=== PATIENT | male | born 1960 | race Caucasian/White ===

== ENCOUNTER 2021-12-20 09:14 | Outpatient (CLI) | payer BC, SELFPAY ==
[2021-12-20 19:28] LABS: Alanine Aminotransferase 29 U/L (6-50); Albumin Level 4.6 g/dL (3.5-5.1); Alkaline Phosphatase 105 U/L (38-126); Anion Gap 12 mmol/L (8-16); Aspartate Amino Transferase 26 U/L (17-59); Bilirubin,Total 0.5 mg/dL (0.2-1.3); Blood Urea Nitrogen 14 mg/dL (9-20); Calcium 9.2 mg/dL (8.4-10.2); Carbon Dioxide 23 mmol/L (22-30); Chloride 105 mmol/L (98-107); Cholesterol 205 mg/dL (0-200); Estimated Glomerular Filt Rate > 60; Glucose 114 mg/dL (65-110); HDL Direct 36 mg/dL; Potassium 3.8 mmol/L (3.4-5.0); Sodium 140 mmol/L (137-145); Triglycerides 85 mg/dL (<150)
[2021-12-20 19:44] LABS: LDL Cholesterol Direct 147 mg/dL
== END 2021-12-20 09:15 | disposition home or self-care (01) ==
LOC: ANHGOSHLAB 09:15
PROVIDERS: PCP Family Medicine; Visit Provider Nurse Practitioner Family
DX: E78.5 Hyperlipidemia, unspecified (principal)
CPT/HCPCS: 36415; 80053; 80061

== ENCOUNTER 2022-04-05 18:36 | Emergency (ER) | payer OTHER, BC, SELFPAY ==
[2022-04-05] VITALS (8 sets, daily range): BP systolic 165–185; BP diastolic 96–102; PULSE 76–91; RESP 12–20; TEMP 36.9; O2SAT 100
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
--- NOTE | 2022-04-05 18:52 | ECG_ITS ---
Measurements Intervals [place] Rate: 79 P: -90 [place]: 158 QRS: 73 QRSD: 110 T: 68 QT: 376 QTc: 431 Interpretive Statements SINUS RHYTHM NO PREVIOUS ECG AVAILABLE FOR COMPARISON Electronically Signed On 04-06-2022 19:40:45 REAL ESTATE EXECUTIVE ASSISTANT by Renita Davison M.D.
[2022-04-05] MEDS: MORPHINE SULFATE (*CRX) 4 MG/ML INJ IV PUSH ×2 (19:39→20:10)
[2022-04-05] MEDS: ONDANSETRON INJ 4 MG/2 ML VIAL IV PUSH (19:39)
[2022-04-05] MEDS: SODIUM CHLORIDE 0.9% IV 1,000 ML 150 ML IV CONT (19:39)
[2022-04-05 19:52] LABS: Basophils Absolute Auto 0.1 K/mm3 (0.0-0.1); Basophils Percent Auto 0.7 % (0.2-1.2); Eosinophils Absolute Auto 0.1 K/mm3 (0-0.3); Eosinophils Percent Auto 1.4 % (0-4.4); Hematocrit 44.3 % (42.0-52.0); Hemoglobin 14.8 g/dL (14.0-18.0); Immature Granulocyte Absolute 0.02 K/mm3 (0.00-0.031); Immature Granulocyte Percent A 0.2 % (0-0.5); Lymphocytes Percent Auto 28.9 % (18.3-44.2); Mean Corpuscular HGB Conc 33.4 g/dl (32-36); Mean Corpuscular Hemoglobin 29.6 pg (26-34); Mean Corpuscular Volume 88.6 fl (80-100); Mean Platelet Volume 10.9 fl (7.4-10.4); Monocytes Absolute Auto 0.6 K/mm3 (0.1-0.6); Monocytes Percent Auto 7.6 % (2.6-8.5); Neutrophils Absolute Auto 5.1 K/mm3 (1.3-6.7); Neutrophils Percent Auto 61.2 % (45.5-73.1); Platelet Count Result 248 k/mm3 (150-375); Red Cell Distribution Width 13.5 % (11.5-14.5); White Blood Count 8.3 K/mm3 (4.5-10.0)
[2022-04-05 20:09] LABS: Alanine Aminotransferase 21 U/L (6-50); Albumin Level 4.8 g/dL (3.5-5.1); Alkaline Phosphatase 112 U/L (38-126); Anion Gap 8 mmol/L (8-16); Aspartate Amino Transferase 29 U/L (17-59); Bilirubin,Total 0.9 mg/dL (0.2-1.3); Blood Urea Nitrogen 13 mg/dL (9-20); Calcium 9.4 mg/dL (8.4-10.2); Carbon Dioxide 23 mmol/L (22-30); Chloride 105 mmol/L (98-107); Estimated CRCL calculation 123 ml/min; Estimated Glomerular Filt Rate > 60; Glucose 92 mg/dL (65-110); Potassium 3.9 mmol/L (3.4-5.0); Sodium 136 mmol/L (137-145)
[2022-04-05 20:20] LABS: Troponin I < 0.012 ng/mL (0.000-0.034)
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
== END 2022-04-05 21:27 | disposition home or self-care (01) ==
PROVIDERS: Emergency Provider Family Medicine; PCP Family Medicine
DX: S16.1XXA Strain of muscle, fascia and tendon at neck level, initial encounter (principal); S80.12XA Contusion of left lower leg, initial encounter; J44.9 Chronic obstructive pulmonary disease, unspecified; E78.5 Hyperlipidemia, unspecified; Z86.73 Personal history of transient ischemic attack (TIA), and cerebral infarction without residual deficits; Z98.42 Cataract extraction status, left eye; Z98.41 Cataract extraction status, right eye; F17.210 Nicotine dependence, cigarettes, uncomplicated; J32.0 Chronic maxillary sinusitis; M47.812 Spondylosis without myelopathy or radiculopathy, cervical region; V43.52XA Car driver injured in collision with other type car in traffic accident, initial encounter
CPT/HCPCS: 36415; 70450; 71045; 72125; 73590; 80053; 84484; 85025; 93005; 96361; 96374; 96375; 99284; J2270; J2405; J7030

== ENCOUNTER 2022-06-27 08:57 | Outpatient (CLI) | payer BC, SELFPAY ==
[2022-06-27 12:48] LABS: Basophils Absolute Auto 0.1 K/mm3 (0.0-0.1); Basophils Percent Auto 0.8 % (0.2-1.2); Eosinophils Absolute Auto 0.2 K/mm3 (0-0.3); Eosinophils Percent Auto 2.6 % (0-4.4); Hemoglobin 14.4 g/dL (14.0-18.0); Immature Granulocyte Absolute 0.02 K/mm3 (0.00-0.031); Immature Granulocyte Percent A 0.3 % (0-0.5); Lymphocytes Absolute Auto 2.72 K/mm3 (0.9-3.2); Mean Corpuscular Hemoglobin 29.3 pg (26-34); Mean Corpuscular Volume 91.5 fl (80-100); Mean Platelet Volume 11.1 fl (7.4-10.4); Monocytes Absolute Auto 0.7 K/mm3 (0.1-0.6); Monocytes Percent Auto 10.3 % (2.6-8.5); Platelet Count Result 275 k/mm3 (150-375); Red Blood Count 4.92 M/mm3 (4.6-6.20); Red Cell Distribution Width 13.7 % (11.5-14.5); White Blood Count 6.6 K/mm3 (4.5-10.0)
[2022-06-27 12:53] LABS: Alanine Aminotransferase 18 U/L (6-50); Albumin Level 4.5 g/dL (3.5-5.1); Alkaline Phosphatase 90 U/L (38-126); Anion Gap 5 mmol/L (8-16); Aspartate Amino Transferase 36 U/L (17-59); Bilirubin,Total 0.7 mg/dL (0.2-1.3); Blood Urea Nitrogen 16 mg/dL (9-20); Calcium 9.5 mg/dL (8.4-10.2); Carbon Dioxide 32 mmol/L (22-30); Chloride 101 mmol/L (98-107); Cholesterol 202 mg/dL (0-200); Estimated Glomerular Filt Rate > 60; Glucose 81 mg/dL (65-110); HDL Direct 41 mg/dL; Potassium 4.6 mmol/L (3.4-5.0); Sodium 138 mmol/L (137-145); Triglycerides 90 mg/dL (<150)
[2022-06-27 13:07] LABS: LDL Cholesterol Direct 137 mg/dL
[2022-06-27 13:23] LABS: Prostate Specific Antigen 2.3 ng/mL (< OR = 4.0); Thyroid Stimulating Hormone 0.685 uIU/mL (0.465-4.680)
[2022-07-01 15:42] LABS: Prolactin 10.6 ng/mL (***)
== END 2022-06-27 08:58 | disposition home or self-care (01) ==
LOC: ANHGOSHLAB 08:57
PROVIDERS: PCP Family Medicine; Visit Provider Nurse Practitioner Family
DX: Z00.00 Encounter for general adult medical examination without abnormal findings (principal); E78.5 Hyperlipidemia, unspecified; I10 Essential (primary) hypertension; Z12.5 Encounter for screening for malignant neoplasm of prostate; D35.2 Benign neoplasm of pituitary gland
CPT/HCPCS: 36415; 80053; 80061; 84146; 84153; 84443; 85025; G0103

== ENCOUNTER 2023-01-02 08:46 | Outpatient (CLI) | payer BC, SELFPAY ==
[2023-01-02 11:59] LABS: Basophils Percent Auto 0.7 % (0.2-1.2); Eosinophils Absolute Auto 0.1 K/mm3 (0-0.3); Eosinophils Percent Auto 3.1 % (0-4.4); Hematocrit 42.6 % (42.0-52.0); Hemoglobin 13.5 g/dL (14.0-18.0); Lymphocytes Absolute Auto 2.12 K/mm3 (0.9-3.2); Lymphocytes Percent Auto 51.3 % (18.3-44.2); Mean Corpuscular HGB Conc 31.7 g/dl (32-36); Mean Corpuscular Volume 91.4 fl (80-100); Mean Platelet Volume 10.8 fl (7.4-10.4); Monocytes Absolute Auto 0.3 K/mm3 (0.1-0.6); Monocytes Percent Auto 7.5 % (2.6-8.5); Neutrophils Absolute Auto 1.5 K/mm3 (1.3-6.7); Neutrophils Percent Auto 37.4 % (45.5-73.1); Platelet Count Result 218 k/mm3 (150-375); Red Blood Count 4.66 M/mm3 (4.6-6.20); Red Cell Distribution Width 14.1 % (11.5-14.5); White Blood Count 4.1 K/mm3 (4.5-10.0)
[2023-01-02 12:15] LABS: Hemoglobin A1C 5.2 % (<5.7)
[2023-01-02 12:31] LABS: Alanine Aminotransferase 15 U/L (6-50); Albumin Level 4.3 g/dL (3.5-5.1); Alkaline Phosphatase 84 U/L (38-126); Anion Gap 8 mmol/L (8-16); Aspartate Amino Transferase 35 U/L (17-59); Bilirubin,Total 0.6 mg/dL (0.2-1.3); Blood Urea Nitrogen 18 mg/dL (9-20); Calcium 9.5 mg/dL (8.4-10.2); Carbon Dioxide 28 mmol/L (22-30); Chloride 105 mmol/L (98-107); Cholesterol 196 mg/dL (0-200); Estimated Glomerular Filt Rate > 60; Glucose 91 mg/dL (65-110); HDL Direct 44 mg/dL; Sodium 141 mmol/L (137-145); Triglycerides 62 mg/dL (<150)
[2023-01-02 12:52] LABS: LDL Cholesterol Direct 122 mg/dL
[2023-01-02 13:31] LABS: Prostate Specific Antigen 2.6 ng/mL (< OR = 4.0); Thyroid Stimulating Hormone 0.557 uIU/mL (0.465-4.680)
[2023-01-06 08:52] LABS: Prolactin 10.5 ng/mL (***)
== END 2023-01-02 08:47 | disposition home or self-care (01) ==
LOC: ANHGOSHLAB 08:47
PROVIDERS: PCP Family Medicine; Visit Provider Nurse Practitioner Family
DX: Z13.220 Encounter for screening for lipoid disorders (principal); R73.03 Prediabetes; Z00.00 Encounter for general adult medical examination without abnormal findings; Z13.29 Encounter for screening for other suspected endocrine disorder; I10 Essential (primary) hypertension; Z12.5 Encounter for screening for malignant neoplasm of prostate; D35.2 Benign neoplasm of pituitary gland
CPT/HCPCS: 36415; 80053; 80061; 83036; 84146; 84153; 84443; 85025; G0103

== ENCOUNTER 2023-07-02 11:08 | Emergency (ER) | payer BC, SELFPAY ==
[2023-07-02 11:13] VITALS: BP 147/66; PULSE 91; RESP 16; TEMP 36.6; O2SAT 100
--- NOTE | 2023-07-02 12:23 | ED.GENADULT ---
HPI - General Adult General Chief complaint: Unspecified Stated complaint: throat pain and swelling Time Seen by Provider: 07/02/23 11:58 History of Present Illness HPI narrative: 8-year-old male presents to the emergency room for evaluation of sore throat. Patient states 10 days ago he had a virtual visit with his primary care doctor for evaluation of URI symptoms that he was experiencing for 3 days. Patient stated he had a sore throat, postnasal drip, sinus congestion and a productive cough. Patient was prescribed a Medrol Dosepak and an antibiotic at that time for his viral illness. Patient states no improvement after taking a 7 day course of Augmentin. Patient states he went to urgent care 3 days ago, where he was tested for strep throat. The POC testing was negative. Patient was once again prescribed antibiotic for his viral illness. Related Data Home Medications Medication Instructions Recorded Confirmed cabergoline 0.5 mg tablet 0.5 mg PO 06/24/23 06/24/23 Allergies Allergy/AdvReac Type Severity Reaction Status Date / Time bromocriptine Allergy Severe Other Verified 07/02/23 11:12 Review of Systems Review of Systems: Review of systems unremarkable except for noted in HPI [facility] Past Medical History Medical History BMI 34.0-34.9,adult COPD (chronic obstructive pulmonary disease) Encounter for long-term (current) use of other medications History of TIA (transient ischemic attack) 1993 Hyperlipidemia Insomnia Knee pain, chronic Pituitary adenoma 1994 Tobacco use URI (upper respiratory infection) Surgical History Surgical History History of cholecystectomy (~2010) History of tonsillectomy (~1967) Hx of bilateral cataract extraction (~04/2021) Family History Family History Other No pertinent family history Social History Social History Social History: Patient is , he lives with his in [place]. They have 2 children. 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 Smoking packs per day: 1 Smoking cigarettes per day: 20.0 Years smoked: 40 Smoking pack-years: 40.00 Smoking status: Former smoker Tobacco type: cigarettes Second hand tobacco smoke exposure: Yes Alcohol intake: never Substance use: never Substance use type: does not use Lack of Transportation: No Lack of Food: Never True Current Housing: I Have Housing Concerned About Future Housing: No Difficulty Paying Gas/Electric Bills: No Difficulty Paying for Meds: No Currently Unemployed: No Education: High School Diploma/GED Difficulty w/ Childcare or Family Care: No Exam Narrative: GENERAL: Well-appearing, well-nourished, no physical limitations, and in no acute distress. HEAD: Normocephalic, atraumatic. EYES: Conjunctivae normal, PERRLA and EOMI. ENT: White curd like plaques to the posterior pharynx with the surrounding erythema consistent with thrush NECK: Supple. No cervical lymphadenopathy CHEST: Clear to auscultation. No respiratory distress. No wheezes rales or rhonchi. HEART: Regular rate and rhythm. No murmur heard. Normal peripheral pulses. EXTREMITIES: Normal range of motion. No edema. No clubbing or cyanosis SKIN: Warm, dry, no rash. No noted wounds NEURO: No focal deficits. Alert and oriented x3. MAEW. CN's II-XI intact bilaterally, normal gait PSYCH: Cooperative. Normal mood and affect. Course Vital Signs Vital signs: Vital Signs Temperature 36.6 C 07/02/23 11:13 Pulse Rate 91 07/02/23 11:13 Respiratory Rate 16 07/02/23 11:13 Blood Pressure 147/66 H 07/02/23 11:13 Pulse Oximetry 100 07/02/23 11:13 Temperature 36.6 C 07/02/23 11:13 Pulse Rate 91 07/02/23 11:13 Respiratory Rate 16 07/02/23 11
[2023-07-02] MEDS: KETOROLAC (*BKC) 60 MG/2 ML VIAL IM (12:31)
[2023-07-02 13:10] VITALS: BP 149/76; PULSE 88; RESP 20; O2SAT 98
== END 2023-07-02 13:10 | disposition home or self-care (01) ==
PROVIDERS: Emergency Provider Nurse Practitioner Family; PCP Family Medicine
DX: B37.0 Candidal stomatitis (principal); J44.9 Chronic obstructive pulmonary disease, unspecified; E78.5 Hyperlipidemia, unspecified; Z86.73 Personal history of transient ischemic attack (TIA), and cerebral infarction without residual deficits; Z87.891 Personal history of nicotine dependence; Z98.42 Cataract extraction status, left eye; Z98.41 Cataract extraction status, right eye; Z90.49 Acquired absence of other specified parts of digestive tract
CPT/HCPCS: 96372; 99283; J1885

== ENCOUNTER 2023-07-07 10:39 | Inpatient (IN) | payer BC, SELFPAY ==
[2023-07-07] VITALS (12 sets, daily range): BP systolic 118–135; BP diastolic 60–72; PULSE 73–116; RESP 15–19; TEMP 36.7–36.9; O2SAT 97–100; BMI 21.9
--- NOTE | ~2023-07-07 | XR_ITS ---
EXAMINATION: XR chest 2V DATE: 07/07/2023 12:32 INDICATION: Shortness of breath TECHNIQUE: frontal and lateral views of the chest were obtained. COMPARISON: Chest radiograph dated 04/05/2022 FINDINGS: Small calcified nodule at the left lung base. No other airspace opacities, pulmonary edema, pleural e ffusion or pneumothorax. The cardiomediastinal silhouette is normal. Mild to moderate thoracic spondy losis. IMPRESSION: 1. No acute cardiopulmonary disease. Reviewed, dictated and finalized at location B.
--- NOTE | ~2023-07-07 | CT_ITS ---
EXAMINATION: CTA chest PE abdomen pel DATE: 07/07/2023 13:43 INDICATION: Shortness of breath and nausea TECHNIQUE: Computed tomography (CT) pulmonary angiogram of the chest was performed with 100 mL Omnipa que-350 intravenous contrast. Additional 3D reconstructions utilizing coronal maximum intensity proje ction (MIP) were performed. CT of the abdomen and pelvis was performed with intravenous contrast util izing the same contrast bolus following a short delay. Automated exposure control and iterative recon struction technique were employed. The dose-length product was 814.18 mGy-cm. COMPARISON: None FINDINGS: Chest: No pulmonary embolism. Sensitivity is decreased in many of the smaller subsegmental pulmonary arterie s due to respiratory motion. Mild emphysema. There are multiple scattered small bilateral calcified p ulmonary nodules consistent with old granulomatous disease. Small region of consolidation at the medi al right apex with appearance favoring atelectasis over pneumonia. No pulmonary edema or pleural effu jan. Heart size is normal. Small amount of atherosclerotic coronary artery calcification. No pericar dial effusion. Thoracic aorta is normal in caliber with no dissection. No pathologically enlarged tho racic lymphadenopathy. Moderate thoracic spondylosis. Abdomen/pelvis: Cholecystectomy clips at the gallbladder fossa. Liver, spleen, pancreas, bilateral adrenal glands are normal. Subcentimeter low-attenuation lesions in the right kidney the caudal-most of fluid attenuati on consistent with a simple cyst. The more cephalad to a slightly higher attenuation most likely comp [place] proteinaceous/hemorrhagic cysts although solid neoplasm cannot be absolutely excluded. There are bilateral nonobstructing renal stones, 4 in the right kidney, the largest measuring 3-4 mm and single 3 mm stone in the left kidney. There is edematous wall thickening throughout the ascending colon wit h mild stranding along the pericecal fat. There is however no evident stranding surrounding the daysi l-appearing appendix. Remainder of the bowels are unremarkable with no obstruction. Bladder is normal . No free intraperitoneal gas or fluid. No pathologically enlarged abdominal or pelvic lymphadenopath y. 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 Additional mild degenerative skeletal changes in the lumbar spine and bilateral hi ps. IMPRESSION: 1. No pulmonary embolism. 2. Wall thickening and pericolonic stranding at the cecum and ascending colon consistent with focal c olitis which could be infectious, inflammatory or less likely ischemic in etiology. 3. Bilateral nonobstructing nephrolithiasis. 4. A few subcentimeter low-attenuation lesions in the right kidney, 2 with low-attenuation consistent with simple cysts and 2 additional lesions measuring up to 9 mm at the upper pole of slightly higher attenuation most likely complex proteinaceous/hemorrhagic cysts although differential would include solid renal cell carcinoma. Would recommend follow-up pre and postcontrast MRI or CT, favor the forme r. 5. Mild emphysema. Reviewed, dictated and finalized at location B. IMPRESSION: 1. No pulmonary embolism. 2. Wall thickening and pericolonic stranding at the cecum and ascending colon c onsistent with focal colitis which could be infectious, inflammatory or less li [place] ischemic in etiology. 3. Bilateral nonobstructing nephrolithiasis. 4. A few subcentimeter low-attenuation lesions in the right kidney, 2 with low- attenuation consistent with simple cysts and 2 additional lesions measuring up to 9 mm at the upper pole of slightly higher attenuation most likely complex pr oteinaceous/hemorrhagic cysts although differential would include solid renal c el
--- NOTE | 2023-07-07 11:52 | ECG_ITS ---
SEE SCANNED COPY FOR CONFIRMED REPORT MTDD
[2023-07-07 12:32] LABS: Hematocrit 33.5 % (42.0-52.0); Hemoglobin 11.4 g/dL (14.0-18.0); Mean Corpuscular Hemoglobin 31.4 pg (26-34); Mean Corpuscular Volume 92.3 fl (80-100); Mean Platelet Volume 10.7 fl (7.4-10.4); Platelet Count Result 132 k/mm3 (150-375); Red Blood Count 3.63 M/mm3 (4.6-6.20); Red Cell Distribution Width 15.8 % (11.5-14.5)
[2023-07-07 12:40] LABS: Appearance Urine Cloudy (Clear); Bacteria Urine None Seen /hpf; Bilirubin Urine 2+ (Negative); Blood Urine Negative (Negative); Color Urine Dark Yellow (Yellow); Glucose Urine UA Negative (Negative); Ketones Urine 2+ mg/dL (Negative); Leukocyte Esterase Ur Negative LEU/UL (Negative); Need Manual Microscopic Reviewed; Nitrate Urine Negative (Negative); Protein Urine 1+ mg/dL (Negative); Specific Grav Ur 1.022 (1.001-1.035); Squamous Epithelial Cell Urine Many /hpf (Few); pH Urine 5.5 (5.0-9.0)
[2023-07-07 12:43] LABS: Add Urine Microscopic? YES; INR 1.2; Partial Thromboplastin Time 34.6 Seconds (22.3-36.8); Prothrombin Time 15.9 Seconds (11.1-14.7)
[2023-07-07 12:48] LABS: Alanine Aminotransferase 17 U/L (6-50); Albumin Level 4.3 g/dL (3.5-5.1); Alkaline Phosphatase 178 U/L (38-126); Anion Gap 14 mmol/L (4-12); Aspartate Amino Transferase 24 U/L (17-59); Bilirubin,Total 1.1 mg/dL (0.2-1.3); Blood Urea Nitrogen 17 mg/dL (9-20); Calcium 9.4 mg/dL (8.4-10.2); Carbon Dioxide 20 mmol/L (22-30); Chloride 102 mmol/L (98-107); Estimated CRCL calculation 77 ml/min; Estimated Glomerular Filt Rate > 60; Glucose 99 mg/dL (65-110); Magnesium 2.1 mg/dL (1.6-2.3); Potassium 2.8 mmol/L (3.4-5.0); Sodium 136 mmol/L (137-145)
[2023-07-07 12:55] LABS: NT Pro B Type Natriuretic Pept 334 pg/mL (19.9-100); Troponin I 0.012 ng/mL (0.000-0.034)
[2023-07-07 12:57] LABS: Blastocytes 14 %; Lymphocytes Absolute Manual 2.08 K/mm3 (1.1-4.5); Monocytes Percent Manual 60 % (3-9); Neutrophils Percent Manual 1 % (46-73); Nucleated Red Blood Cells 1 %; Platelet Estimate Decreased (Adequate); Promyelocytes Percent 2 %; Schistocytes None Seen; Total Cells Counted 100
[2023-07-07] MEDS: LACTATED RINGERS 1,000 ML 999 ML IV CONT ×2 (13:53)
--- NOTE | 2023-07-07 13:57 | ED.GENADULT ---
HPI - General Adult General Chief complaint: Shortness of Breath/Dyspnea Stated complaint: abd pain, feels SOB, no energy Time Seen by Provider: 07/07/23 11:39 Source: patient, RN notes reviewed and old records reviewed Mode of arrival: ambulatory Limitations: no limitations History of Present Illness HPI narrative: This is a 62 year old male that presents for evaluation of shortness of breath and fatigue. Patient states starting over 2 weeks ago he developed a sore throat. He was placed on antibiotics but he felt like he was getting worse so he went to urgent care. He reports testing negative for strep but he was continued on antibiotics. He states 5 days ago he came to ER because he did not feel any better . He was diagnosed with thrush at that time and placed on nystatin. Related Data Home Medications Medication Instructions Recorded Confirmed cabergoline 0.5 mg tablet 0.5 mg PO 2XW 06/24/23 07/07/23 fluticasone fur. 100 mcg-umeclid 1 inh inhalation QHS 07/07/23 07/07/23 62.5 mcg-vilant 25 mcg inhalat.powder (Trelegy Ellipta) Allergies Allergy/AdvReac Type Severity Reaction Status Date / Time bromocriptine Allergy Severe Other Verified 07/07/23 18:23 Review of Systems Constitutional: Constitutional: Reports fatigue and Reports weakness ENT: Reports dizziness and Reports sore throat Cardiovascular: Cardiovascular: Denies syncope, Denies rapid heart rate, Denies irregular heart rhythm, Denies leg edema and Reports dyspnea Respiratory: Respiratory: Denies chest congestion, Denies hemoptysis, Denies excessive phlegm production and Reports dyspnea Gastrointestinal: Gastrointestinal: Reports abdominal pain, Denies hematochezia, Denies diarrhea, Reports nausea and Denies vomiting Genitourinary: Genitourinary: Denies hematuria, Denies dysuria, Denies penile discharge and Denies testicular pain Musculoskeletal: Musculoskeletal: Denies joint swelling, Denies loss of height and Denies muscle weakness Neurologic: Denies syncope, Reports headache(s), Denies focal weakness and Denies weakness PMFSH Past Medical History Medical History (Updated 07/07/23 @ 17:28 by Tosin Adorno PA-C) Chronic obstructive pulmonary disease Former smoker Hyperlipidemia Insomnia Pituitary adenoma (1994) Transient ischemic attack (1993) Surgical History Surgical History (Updated 07/07/23 @ 17:09 by Tosin Adorno PA-C) History of bilateral cataract extraction (04/2021) History of cholecystectomy (2010) History of tonsillectomy (1967) Family History Family History Other No pertinent family history Social History Social History (Updated 07/07/23 @ 17:26 by Tosin Adorno PA-C) Social History: Surrogate medical decision maker: Code status: Full code. Smoking packs per day: 0.5 Smoking cigarettes per day: 10.0 Years smoked: 45 Smoking pack-years: 22.50 Smoking status: Light tobacco smoker Tobacco type: cigarettes Second hand tobacco smoke exposure: Yes Alcohol intake: never Drinks per week: 0 Substance use: never Substance use type: does not use Do You Feel Safe in your Home?: Yes Lack of Transportation: No Lack of Food: Never True Current Housing: I Have Housing Concerned About Future Housing: No Difficulty Paying Gas/Electric Bills: No Difficulty Paying for Meds: No Currently Unemployed: No Education: Associate Degree Difficulty w/ Childcare or Family Care: No Additional living arrangements comments: with 2 children. Lives with spouse in [place]. 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 Spiritual care concerns: No Exam Const: General: no acute distress and alert Nutritional Appearance: well nourished Orientation/consciousness: patient oriented x3 Limitations: no limitations HENMT: Head: normal to inspection Ears: external ears normal Face/Nose/Sinu
[2023-07-07] MEDS: POTASSIUM CHLORIDE 20 MEQ ER TABLET 40 MEQ PO (15:38)
--- NOTE | 2023-07-07 15:51 | PM.IMHP ---
H&P: HPI History of Present Illness Date/Time: 07/07/23 18:00 Chief Complaint: Fatigue, shortness of breath, abdominal pain. Narrative: This is a very pleasant 62-year-old male with history of transient ischemic attack, pituitary adenoma, chronic obstructive pulmonary disease, and hyperlipidemia who presented to the emergency department for evaluation of abdominal pain, fatigue, and shortness of breath. The patient provides following history. He had a telemedicine appointment with his doctor on 06/24/2023 for evaluation of sore throat, chest congestion, cough productive of light green sputum, and fever up to 101.7? which had been ongoing for nearly a week. He was prescribed a Medrol Dosepak and Augmentin with plans for follow-up in 1 week. He finished his medications with no improvement and he was seen in the emergency department on 07/02/2023 with ongoing symptoms including worsening sore throat. There was evidence of thrush on exam and the was given a dose of fluconazole as well as nystatin oral suspension. The thrush has greatly improved with treatment but he continues to feel poorly. He has no energy and reports fatigue, ongoing fevers, nonbloody diarrhea, shortness of breath with activity, and diffuse cramping abdominal pain without radiation. Appetite is poor. With further questioning he has apparently loss 130 lb in the last 1.5 years though he has not necessarily been trying. He denies sick contacts, sinus congestion, cough, chest pain, pleuritic pain, swollen lymph nodes, dysuria, wounds and rashes, and recent travel. In the ED: He was afebrile on arrival with stable vital signs. CBC was significant for WBC count of 26.0, hemoglobin 11.4, hematocrit 33.5, platelet 132. Manual differential was significant for 1% neutrophils, 8% lymphocytes, 60% monocytes, 2% promyelocytes, and 14% blast cells. CMP showed a sodium of 136, potassium 2.8, BUN 17, creatinine 1.10, lactic acid 1.0, uric acid 4.6, magnesium 2.1, LDH 242. Chest x-ray showed no acute cardiopulmonary disease. CTA of the chest, abdomen, and pelvis showed wall thickening and pericolonic stranding at the cecum and ascending colon, bilateral nonobstructing nephrolithiasis, a few subcentimeter kidney lesions, and mild emphysema. After seeing the differential on his CBC, the ED physician spoke with Dr. Naqvi who thought it would be most appropriate to transfer the patient to a [facility] however was willing to see the patient in consultation if no beds were available. [facility] has accepted the patient but they do not anticipate having a bed in the next 24 hours and he will be admitted here pending bed availability. They recommended starting empiric antibiotics for possible colitis given his neutropenia and starting hydroxyurea with close monitoring labs for tumor lysis syndrome. Review of Systems Review of Systems: 12 systems were reviewed and are negative except for as per HPI. [facility] Past Medical History Medical History Chronic obstructive pulmonary disease Former smoker Hyperlipidemia Insomnia Pituitary adenoma (1994) Transient ischemic attack (1993) Surgical History Surgical History History of bilateral cataract extraction (04/2021) History of cholecystectomy (2010) History of tonsillectomy (1967) Family History Family History Other No pertinent family history Social History Social History Social History: Code status: Full code. Smoking packs per day: 1 Smoking cigarettes per day: 20.0 Years smoked: 40 Smoking pack-years: 40.00 Smoking status: Former smoker Tobacco type: cigarettes Second hand tobacco smoke exposure: Yes Alcohol intake: never Drinks per week: 0 Substance use: never Substance use type: does n
[2023-07-07] MEDS: SODIUM CHLORIDE 0.9% IV 1,000 ML 125 ML IV CONT (15:52)
[2023-07-07] MEDS: POTASSIUM CHLORIDE INJ 40 MEQ in SODIUM CHLORIDE 0.9% IV 500 ML 130 MEQ IVPB (15:54)
[2023-07-07] MEDS: metroNIDAZOLE 500 MG/ISO 100ML 500 MG/100 ML BAG 100 MG IVPB ×2 (16:38→22:10)
--- NOTE | 2023-07-07 16:45 | PC.NURSE ---
This RN spoke with Felicity at [facility] who stated the patient has been accepted and that she will call when a bed becomes available for the pt
[2023-07-07 17:13] LABS: Lactate Dehydrogenase 242 U/L (120-246); Uric Acid 4.6 mg/dL (3.5-8.5)
--- NOTE | 2023-07-07 17:45 | ADMGEN ---
This patient, Pierre Toussaint, was admitted to Medical Room 252-01. Patient/family oriented to hospital policies and general routines including ID bracelet, bed and alarms, visiting hours, pain management, procedures, bathroom and other care routines, personal items, smoking policy, room service/diet, and visiting hours. Information on how to activate the Rapid Response Team has been discussed. Patient/Family are encouraged to report perceived risks to care and to ask questions if they do not understand what they are told or what they should do.
[2023-07-07 19:31] LABS: Fibrinogen 663 mg/dl (215-510)
[2023-07-07] MEDS: MORPHINE SULFATE (*CRX) 2 MG/ML INJ IV PUSH (20:06)
[2023-07-07] MEDS: HYDROcodone/acetaminophen (*CRX) 5-325 MG TABLET 1 TAB PO (23:02)
[2023-07-08] VITALS (10 sets, daily range): BP systolic 100–118; BP diastolic 52–58; PULSE 65–95; RESP 16–20; TEMP 36.5–38.5; O2SAT 95–99
[2023-07-08] MEDS: SODIUM CHLORIDE 0.9% IV 1,000 ML 125 ML IV CONT ×2 (03:49→12:00)
[2023-07-08] MEDS: ACETAMINOPHEN 325 MG TABLET 650 MG PO (05:16)
[2023-07-08] MEDS: metroNIDAZOLE 500 MG/ISO 100ML 500 MG/100 ML BAG 100 MG IVPB ×2 (05:16→13:18)
[2023-07-08 05:49] LABS: Hemoglobin 9.5 g/dL (14.0-18.0); Mean Corpuscular HGB Conc 33.9 g/dl (32-36); Mean Corpuscular Hemoglobin 31.8 pg (26-34); Mean Corpuscular Volume 93.6 fl (80-100); Platelet Count Result 101 k/mm3 (150-375); Red Blood Count 2.99 M/mm3 (4.6-6.20); Red Cell Distribution Width 16.1 % (11.5-14.5); White Blood Count 29.9 K/mm3 (4.5-10.0)
[2023-07-08 06:03] LABS: Alanine Aminotransferase 14 U/L (6-50); Albumin Level 3.2 g/dL (3.5-5.1); Alkaline Phosphatase 126 U/L (38-126); Anion Gap 7 mmol/L (4-12); Aspartate Amino Transferase 20 U/L (17-59); Blood Urea Nitrogen 13 mg/dL (9-20); Calcium 8.3 mg/dL (8.4-10.2); Carbon Dioxide 19 mmol/L (22-30); Chloride 106 mmol/L (98-107); Estimated CRCL calculation 93 ml/min; Estimated Glomerular Filt Rate > 60; Glucose 88 mg/dL (65-110); Magnesium 1.8 mg/dL (1.6-2.3); Potassium 3.3 mmol/L (3.4-5.0); Sodium 132 mmol/L (137-145); Uric Acid 4.6 mg/dL (3.5-8.5)
[2023-07-08 07:30] LABS: Blastocytes 21 %; Eosinophils Absolute Manual 0.29 K/mm3 (0.02-0.50); Eosinophils Percent Manual 1 % (0-4); Lymphocytes Absolute Manual 13.75 K/mm3 (1.1-4.5); Monocytes Absolute Manual 6.87 K/mm3 (0.1-0.90); Monocytes Percent Manual 23 % (3-9); Neutrophils Percent Manual 1 % (46-73); Nucleated Red Blood Cells 1 %; Platelet Estimate Decreased (Adequate); Promyelocytes Percent 8 %; Total Cells Counted 100
[2023-07-08 07:31] LABS: Anisocytosis 1+; Burr Cells 1+; Schistocytes None Seen
[2023-07-08] MEDS: NYSTATIN 100,000 UNITS/ML SUSP 5 ML ORAL.SUSP PO ×3 (08:46→17:16)
[2023-07-08] MEDS: FLUTICASONE PROPIONATE 0.05% NA SPR 16 GM BTL (*BKC) 1 SPRAY NASAL (08:46)
[2023-07-08] MEDS: HYDROcodone/acetaminophen (*CRX) 5-325 MG TABLET 1 TAB PO ×2 (08:46→17:18)
--- NOTE | 2023-07-08 08:51 | PM.IMPN ---
Progress Note: A&P Assessment and Plan (1) Leukemia: Code(s): C95.90 - Leukemia, unspecified not having achieved remission Status: Acute Assessment and Plan: -substantial, unintentional weight loss of 130 lb in the last 1.5 years and the last several months CBC today is concerning for leukemia with severe neutropenia and an increase in premature cells including blasts cells. Oncology team at [place] has accepted him in transfer however there is no bed available at this time and he will be admitted to the floor for now pending bed availability. They recommend continuing empiric antibiotics and starting hydroxyurea 1000 mg b.i.d. with close monitoring for tumor lysis. (2) Colitis: Code(s): K52.9 - Noninfective gastroenteritis and colitis, unspecified Status: Acute (3) Hypokalemia: Code(s): E87.6 - Hypokalemia Status: Acute (4) Pituitary adenoma: Onset Date: 1994 Code(s): D35.2 - Benign neoplasm of pituitary gland Status: Acute (5) Chronic obstructive pulmonary disease: Code(s): J44.9 - Chronic obstructive pulmonary disease, unspecified Status: Acute Plan The patient presented to the emergency department for evaluation of fever, abdominal pain, and shortness of breath as detailed in HPI. Labs, imaging, EKG, and all reports were personally reviewed. He reports a substantial, unintentional weight loss of 130 lb in the last 1.5 years and the last several months that he seems to pickling grader any infection he is exposed to with prolonged time to healing. CBC today is concerning for leukemia with severe neutropenia and an increase in premature cells including blasts cells. Oncology team at [place] has accepted him in transfer however there is no bed available at this time and he will be admitted to the floor for now pending bed availability. They recommend continuing empiric antibiotics and starting hydroxyurea 1000 mg b.i.d. with close monitoring for tumor lysis. At this time his potassium is actually quite low and will be replaced and monitored. Calcium and magnesium are within normal limits. Stool studies as well as stool for C diff have been ordered. No evidence to suggest acute COPD exacerbation. awaiting for bed from [place] Time Spent With Patient Time with patient: less than 15 minutes Subjective Date/time seen: 07/08/23 08:51 Interval history: 62-year-old male with history of transient ischemic attack, pituitary adenoma, chronic obstructive pulmonary disease, and hyperlipidemia who presented to the emergency department for evaluation of abdominal pain, fatigue, and shortness of breath. He had a telemedicine appointment with his doctor on 06/24/2023 for evaluation of sore throat, chest congestion, cough productive of light green sputum, and fever up to 101.7? which had been ongoing for nearly a week. He was prescribed a Medrol Dosepak and Augmentin with plans for follow-up in 1 week. He finished his medications with no improvement and he was seen in the emergency department on 07/02/2023 with ongoing symptoms including worsening sore throat. There was evidence of thrush on exam and the was given a dose of fluconazole as well as nystatin oral suspension. The thrush has greatly improved with treatment but he continues to feel poorly. He has no energy and reports fatigue, ongoing fevers, nonbloody diarrhea, shortness of breath with activity, and diffuse, cramping abdominal pain without radiation. Appetite is poor. With further questioning he has apparently loss 130 lb in the last 1.5 years though he has not necessarily been trying. He denies sick contacts, sinus congestion, cough, chest pain, pleuritic pain, swollen lymph nodes, dysuria, wounds and rashes, and recent travel. In the ED: He was afebrile on arrival with stable vital signs. CBC was significant for WBC count of 26.0, hemoglobin 11.4, hematocrit 33.5, platelet 132. Manual differential was significant for 1% neutrophils, 8% lympho
[2023-07-08] MEDS: HYDROXYUREA (*CHEMO) 500 MG CAPSULE 1000 MG PO ×2 (11:50→17:15)
[2023-07-08] MEDS: MORPHINE SULFATE (*CRX) 2 MG/ML INJ IV PUSH (11:51)
[2023-07-08] MEDS: IBUPROFEN 600 MG TABLET PO (11:51)
--- NOTE | 2023-07-08 12:36 | PDONCCN ---
HPI - Date of Consult Date/Time: 07/08/23 12:36 Requesting Physician: Aleksandr Mendez MD Primary Care Provider: Malachi Kapoor MD - Consult Narrative Reason for consult: Acute promyelocytic leukemia Narrative: Pierre Toussaint is a 62 year old male who has been in good health except history of pituitary adenoma, COPD, hyperlipidemia and TIA came into the ER with abdominal pain fatigue generalized weakness along with shortness of breath going on for 3 weeks duration. He has been coughing with some light yellow greenish sputum and complain of fever and chills for 2-3 weeks duration. He has lost more than 10 lb weight with poor appetite. He was treated initially with Augmentin and Medrol Dosepak. He denies any bleeding including melena hematochezia. Denies any mucosal bleeding. His labs showed elevated WBC count of 26,000 with hemoglobin of 11.5 and platelet of [id number]. There was 14% blast on the peripheral smear. He denies any previous history of leukemia and lymphoma. 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 Review of Systems - Review of Systems All systems reviewed & are unremarkable except as noted in HPI and bel - Neurologic Reports headache(s), Denies syncope, Denies focal weakness, Denies weakness PMFSH Medical History: Medical History (Last Reviewed 07/07/23 @ 21:05 by Tosin Adorno PA-C) Chronic obstructive pulmonary disease Former smoker Hyperlipidemia Insomnia Pituitary adenoma Onset Date: 1994 Transient ischemic attack Onset Date: 1993 Surgical History: Surgical History (Last Reviewed 07/07/23 @ 21:05 by Tosin Adorno PA-C) History of bilateral cataract extraction Onset Date: 04/2021 History of cholecystectomy Onset Date: 2010 History of tonsillectomy Onset Date: 1967 Family History: Family History (Last Reviewed 07/07/23 @ 21:05 by Tosin Adorno PA-C) Other No pertinent family history - Social History Social History: Social History (Last Updated 07/07/23 @ 21:06 by Tosin Adorno PA-C) Alcohol Use: Alcohol intake: never Drinks per week: 0 Substance Use: Substance use: never Substance use type: does not use Others: Spiritual care concerns: No Smoking Status: Smoking status: Former smoker Tobacco type: cigarettes Second hand tobacco smoke exposure: Yes Smoking Pack-years: Smoking packs per day: 1 Smoking cigarettes per day: 20.0 Years smoked: 40 Smoking pack-years: 40.00 Social Determinants of Health: Do You Feel Safe in your Home?: Yes Has the Lack of Transportation Kept You From Medical Appointments or From Getting Medications?: No Within the Past 12 Months, Were You Worried Whether Your Food Would Run Out Before You Got Money to Buy More?: Never True What is Your Housing Situation Today?: I Have Housing Are You Worried That in the Next 2 Months, You May Not Have Your Own Housing to Live In?: No Do You Have Trouble Paying Your Heating Or Electricity Bill?: No Do You Have Trouble Paying For Medicines?: No Are You Currently Unemployed and Looking for Work?: No Highest Level of Education Completed: High School Diploma/GED Do You Have Trouble With Childcare or the Care of a Family Member?: No Exam - Vital Signs Vital Signs - 24 hr 07/07/23 13:54 07/07/23 15:15 07/07/23 16:38 Temperature Pulse Rate 73 86 87 Respiratory Rate 19 18 15 Blood Pressure 135/67 135/70 129/72 Pulse Oximetry 100 100 100 Oxygen Delivery 07/07/23 17:26 07/07/23 17:46 07/07/23 18:00 Temperature 36.9 C 36.7 C Pulse Rate 97 116 H Respiratory Rate 19 16 Blood Pressure 122/62 128/70 Pulse Oximetry 99 98 Oxygen Delivery Room Air 07/07/23 18:57 07/07/23 20:54 07/07/23 20:56 Temperature 36.9 C 36.9 C Pulse Rate 92 96 96 Respiratory Rate 18 18 Blood Pr
[2023-07-08] MEDS: FLUTICASONE/UMECLIDIN/VILANTER 100-62.5-25 MCG ELLIPTA 1 PUFF INHALATION (20:47)
[2023-07-08] MEDS: ALBUTEROL SULFATE (*SP) AEROSOL 1 PUFF 2 PUFF INHALATION (20:48)
--- NOTE | 2023-07-16 15:55 | PM.TDS ---
Transfer Discharge Sum: Prov Provider Date of admission: 07/08/23 09:13 Primary care physician: Malachi Kapoor MD Admitting clinician: Aleksandr Mendez MD Consults: 07/07/23 Consult to Physician Routine Comment: Called office LVM @ 08:43am (-) Consulting Provider: Pawel Naqvi employment representative/MD group to consult: Dr. Naqvi Reason for consultation: leukemia- pending bed at [facility], ?bmbx? Has provider been notified: Yes Attending physician on discharge: Samir Mendez Discharging clinician: Opal Rivera Anticipated date of transfer: 07/08/23 Receiving physician/facility: [facility] DS: Admitting Diagnosis Discharge Date 07/08/23 Admitting Diagnosis leukemia DS: Discharge Diagnosis Discharge Diagnosis (1) Leukemia: Code(s): C95.90 - Leukemia, unspecified not having achieved remission Status: Acute Assessment and Plan: -substantial, unintentional weight loss of 130 lb in the last 1.5 years and the last several months CBC today is concerning for leukemia with severe neutropenia and an increase in premature cells including blasts cells. Oncology team at [facility] has accepted him in transfer however there is no bed available at this time and he will be admitted to the floor for now pending bed availability. They recommend continuing empiric antibiotics and starting hydroxyurea 1000 mg b.i.d. with close monitoring for tumor lysis. (2) Colitis: Code(s): K52.9 - Noninfective gastroenteritis and colitis, unspecified Status: Acute (3) Hypokalemia: Code(s): E87.6 - Hypokalemia Status: Acute (4) Pituitary adenoma: Onset Date: 1994 Code(s): D35.2 - Benign neoplasm of pituitary gland Status: Acute (5) Chronic obstructive pulmonary disease: Code(s): J44.9 - Chronic obstructive pulmonary disease, unspecified Status: Acute Plan The patient presented to the emergency department for evaluation of fever, abdominal pain, and shortness of breath as detailed in HPI. Labs, imaging, EKG, and all reports were personally reviewed. He reports a substantial, unintentional weight loss of 130 lb in the last 1.5 years and the last several months that he seems to order picker any infection he is exposed to with prolonged time to healing. CBC today is concerning for leukemia with severe neutropenia and an increase in premature cells including blasts cells. Oncology team at [place] has accepted him in transfer however there is no bed available at this time and he will be admitted to the floor for now pending bed availability. They recommend continuing empiric antibiotics and starting hydroxyurea 1000 mg b.i.d. with close monitoring for tumor lysis. At this time his potassium is actually quite low and will be replaced and monitored. Calcium and magnesium are within normal limits. Stool studies as well as stool for C diff have been ordered. No evidence to suggest acute COPD exacerbation. awaiting for bed from [facility] Transfer Discharge Sum: Med Medications Active and Home Medications: Home Medications albuterol sulfate 90 mcg/actuation aerosol inhaler 2 puff inhalation Q6-8H PRN shortness of breath or wheezing #25.5 grams 06/23/23 [Rx Confirmed 07/07/23] cabergoline 0.5 mg tablet 0.5 mg PO 2XW 06/24/23 [History Confirmed 07/07/23] fluticasone propionate 50 mcg/actuation nasal spray,suspension 1 spray intranasal BID #16 grams 06/24/23 [Rx Confirmed 07/07/23] nystatin 100,000 unit/mL oral suspension 100,000 unit PO QID 14 days #56 mL 07/02/23 [Rx Confirmed 07/07/23] fluticasone fur. 100 mcg-umeclid 62.5 mcg-vilant 25 mcg inhalat.powder (Trelegy Ellipta) 1 inh inhalation QHS 07/07/23 [History Confirmed 07/07/23] Transfer Discharge Sum: Hosp Hospital Course Hospital course: Pierre Toussaint a 62-year-old male with history of transient ischemic attack, pituitary adenoma, chronic obstructive pulmonary disease, and hyperlipidemia who presented to the emergency departmen
== END 2023-07-08 21:00 | disposition short-term general hospital (02) | DRG 836 ==
LOC: ANHED 11:53 → ANH2MED 17:00
PROVIDERS: Physician Assistant; Admitting Provider Internal Medicine; Emergency Provider General Practice; PCP Family Medicine; Visit Provider Nurse Practitioner
DX: C92.40 Acute promyelocytic leukemia, not having achieved remission (principal); K52.9 Noninfective gastroenteritis and colitis, unspecified; E87.6 Hypokalemia; D70.9 Neutropenia, unspecified; E78.5 Hyperlipidemia, unspecified; J43.9 Emphysema, unspecified; N20.0 Calculus of kidney; Z86.73 Personal history of transient ischemic attack (TIA), and cerebral infarction without residual deficits; Z87.891 Personal history of nicotine dependence; Z86.018 Personal history of other benign neoplasm; Z98.41 Cataract extraction status, right eye; Z98.42 Cataract extraction status, left eye; Z90.49 Acquired absence of other specified parts of digestive tract
CPT/HCPCS: 36415; 71046; 71275; 74177; 80053; 81001; 83605; 83615; 83735; 83880; 84100; 84484; 84550; 85025; 85384; 85610; 85730; 87040; 87086; 88365; 93005; 94640; 96361; 96365; 96366; 96367; 96375; 99285; A9270; G0378; J0696; J1836; J2270; J3480; J7030; J7040; J7120; Q9967

== ENCOUNTER 2023-10-26 02:43 | Emergency (ER) | payer BC, SELFPAY ==
[2023-10-26] VITALS (8 sets, daily range): BP systolic 130–150; BP diastolic 70–92; PULSE 68–677; RESP 12–18; TEMP 36.3–36.6; O2SAT 100
[2023-10-26 03:07] LABS: Bacteria Urine None Seen /hpf; RBC Urine >100 /hpf (0-2); Squamous Epithelial Cell Urine None Seen /hpf (Few); WBC Urine 0-5 /hpf (0-3)
[2023-10-26 03:20] LABS: Add Urine Microscopic? YES; Appearance Urine Clear (Clear); Color Urine Brown (Yellow); Glucose Urine UA Negative (Negative); Protein Urine 2+ mg/dL (Negative); Specific Grav Ur 1.025 (1.001-1.035)
[2023-10-26 03:21] LABS: Bilirubin Urine 1+ (Negative); Blood Urine 3+ (Negative); Ketones Urine Trace mg/dL (Negative); Leukocyte Esterase Ur Negative LEU/UL (Negative); Nitrate Urine Negative (Negative); Urobilinogen Urine 0.2 mg/dL (<2.0)
--- NOTE | 2023-10-26 05:53 | ED.GENADULT ---
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 Patient is undergoing chemotherapy at [facility] with Dr. Agrawal. He received his infusions last week has normal but had low platelets at that time periods but the towers low as 35 and after transfusion increased to 43. He came to the ED this morning because he went to the restroom and noticed that his urine is red. He has no dysuria flank pain suprapubic pain fevers chills nausea vomiting or diarrhea. He feels well otherwise. Related Data Home Medications Medication Instructions Recorded Confirmed cabergoline 0.5 mg tablet 0.5 mg PO 2XW 06/24/23 07/07/23 Allergies Allergy/AdvReac Type Severity Reaction Status Date / Time bromocriptine Allergy Severe Anaphylaxis Verified 07/07/23 18:51 [facility] Past Medical History Medical History Chronic obstructive pulmonary disease Former smoker Hyperlipidemia Insomnia Pituitary adenoma (1994) Transient ischemic attack (1993) Surgical History Surgical History History of bilateral cataract extraction (04/2021) History of cholecystectomy (2010) History of tonsillectomy (1967) Family History Family History Other No pertinent family history Social History Social History Social History: Code status: Full code. Smoking packs per day: 1 Smoking cigarettes per day: 20.0 Years smoked: 40 Smoking pack-years: 40.00 Smoking status: Former smoker Tobacco type: cigarettes Second hand tobacco smoke exposure: Yes Alcohol intake: never Drinks per week: 0 Substance use: never Substance use type: does not use Do You Feel Safe in your Home?: Yes Lack of Transportation: No Lack of Food: Never True Current Housing: I Have Housing Concerned About Future Housing: No Difficulty Paying Gas/Electric Bills: No Difficulty Paying for Meds: No Currently Unemployed: No Education: High School Diploma/GED Difficulty w/ Childcare or Family Care: No Additional living arrangements comments: with 2 children. Lives with spouse in [place]. 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 Spiritual care concerns: No Exam Narrative: APPEARANCE: No apparent distress. Head: atraumatic. EYES: EOMI, NOSE: Atraumatic NECK: Trachea midline RESPIRATORY: No increased rate of breathing, CTAB CARDIOVASCULAR: RRR, no peripheral edema ABDOMINAL: Non-distended, soft nontender MUSCULOSKELETAl: No obvious deformities NEURO: Alert. Moving 4/4 extremities SKIN:: Warm, dry. Normal color PSYCHIATRIC: Normal affect Course Vital Signs Vital signs: Vital Signs Temperature 97.8 F 10/26/23 02:48 Pulse Rate 100 10/26/23 02:48 Respiratory Rate 18 10/26/23 02:48 Blood Pressure 130/70 10/26/23 02:48 Pulse Oximetry 100 10/26/23 02:48 Oxygen Delivery Room Air 10/26/23 02:48 Temperature 97.8 F 10/26/23 02:48 Pulse Rate 72 10/26/23 05:58 Respiratory Rate 18 10/26/23 05:58 Blood Pressure 142/80 H 10/26/23 05:58 Pulse Oximetry 100 10/26/23 05:58 Oxygen Delivery Room Air 10/26/23 02:48 Medical Decision Making MDM Narrative Medical decision making narrative: -Course: 63-year-old male undergoing chemotherapy for leukemia presenting with painless hematuria. CBC showed a white count of 0.6 and platelets of 24. Consult was placed to [facility] oncology. They recommended transfusing a unit of platelets. This was performed. No evidence of infection at this time. Patient will follow-up with the oncology clinic next Friday.
[2023-10-26 06:07] LABS: Hematocrit 26.2 % (42.0-52.0); Hemoglobin 8.5 g/dL (14.0-18.0); Immature Platelet Fraction Pct 0.5 % (0.9-11.2); Mean Corpuscular HGB Conc 32.4 g/dl (32-36); Mean Corpuscular Volume 98.5 fl (80-100); Mean Platelet Volume 9.4 fl (7.4-10.4); Red Blood Count 2.66 M/mm3 (4.6-6.20); Red Cell Distribution Width 15.8 % (11.5-14.5)
[2023-10-26 06:19] LABS: INR 0.9; Prothrombin Time 13.1 Seconds (11.1-14.7)
[2023-10-26 06:20] LABS: Alanine Aminotransferase 22 U/L (6-50); Albumin Level 4.1 g/dL (3.5-5.1); Alkaline Phosphatase 72 U/L (38-126); Anion Gap 8 mmol/L (4-12); Aspartate Amino Transferase 24 U/L (17-59); Bilirubin,Total 0.1 mg/dL (0.2-1.3); Blood Urea Nitrogen 31 mg/dL (9-20); Calcium 9.7 mg/dL (8.4-10.2); Carbon Dioxide 26 mmol/L (22-30); Chloride 105 mmol/L (98-107); Estimated Glomerular Filt Rate > 60; Glucose 85 mg/dL (65-110); Partial Thromboplastin Time 32.9 Seconds (22.3-36.8); Potassium 4.1 mmol/L (3.4-5.0); Sodium 139 mmol/L (137-145)
[2023-10-26 06:29] LABS: White Blood Count 0.6 K/mm3 (4.5-10.0)
[2023-10-26 06:30] LABS: Platelet Count Result 24 k/mm3 (150-375)
[2023-10-26 06:32] LABS: Lymphocytes Absolute Manual 0.14 K/mm3 (1.1-4.5); Lymphocytes Percent Manual 24 % (18-44); Neutrophils Percent Manual 1 % (46-73)
[2023-10-26 06:33] LABS: Total Cells Counted 25
[2023-10-26 06:34] LABS: Hypochromasia 1+; Platelet Estimate Decreased (Adequate); Schistocytes None Seen
--- NOTE | 2023-10-26 07:50 | PC.NURSE ---
0700 Pt asking if he can go outside to make some phone calls. Pt was advised by RNs to stay in room due to safety reasons as well as upcoming platelet transfusion.
[2023-10-26] MEDS: SODIUM CHLORIDE 0.9% IV 250 ML 30 ML IV CONT (09:36)
== END 2023-10-26 10:52 | disposition home or self-care (01) ==
PROVIDERS: Emergency Provider Emergency Medicine; PCP Family Medicine
DX: R31.9 Hematuria, unspecified (principal); D69.6 Thrombocytopenia, unspecified; Z51.11 Encounter for antineoplastic chemotherapy; E78.5 Hyperlipidemia, unspecified; J44.9 Chronic obstructive pulmonary disease, unspecified; Z86.73 Personal history of transient ischemic attack (TIA), and cerebral infarction without residual deficits; Z87.891 Personal history of nicotine dependence; C92.40 Acute promyelocytic leukemia, not having achieved remission
CPT/HCPCS: 36415; 36430; 80053; 81001; 85025; 85055; 85610; 85730; 86900; 86901; 96360; 99283; J7050; P9034

== ENCOUNTER 2023-12-07 11:08 | Emergency (ER) | payer BC, SELFPAY ==
[2023-12-07 11:19] VITALS: BP 127/77; PULSE 88; RESP 18; TEMP 36.8; O2SAT 99
--- NOTE | 2023-12-07 11:21 | ED.MALEGU ---
HPI - Male Genitourinary General Chief complaint: Urogenital-Male Stated complaint: urinating blood Time Seen by Provider: 12/07/23 11:12 Source: patient Mode of arrival: ambulatory Limitations: no limitations History of Present Illness HPI Narrative: 63 YEARS OLD WHITE MALE DROVE HIMSELF TO THE EMERGENCY ROOM AFTER NOTICING BLOOD IN THE URINE PRIOR TO ARRIVAL. HE DENIES ANY FEVER, CHILLS, NAUSEA, VOMITING, OR PAIN HISTORY OF LEUKEMIA, LAST PLATELET TRANSFUSION 3 DAYS AGO Related Data Home Medications Medication Instructions Recorded Confirmed cabergoline 0.5 mg tablet 0.5 mg PO 2XW 06/24/23 07/07/23 Allergies Allergy/AdvReac Type Severity Reaction Status Date / Time bromocriptine Allergy Severe Anaphylaxis Verified 12/07/23 11:23 Review of Systems Review of Systems: All systems reviewed & are unremarkable except as noted in HPI and below PMFSH Past Medical History Medical History Chronic obstructive pulmonary disease Former smoker Hyperlipidemia Insomnia Pituitary adenoma (1994) Transient ischemic attack (1993) Surgical History Surgical History History of bilateral cataract extraction (04/2021) History of cholecystectomy (2010) History of tonsillectomy (1967) Family History Family History Other No pertinent family history Social History Social History Social History: Code status: Full code. Smoking packs per day: 1 Smoking cigarettes per day: 20.0 Years smoked: 40 Smoking pack-years: 40.00 Smoking status: Former smoker Tobacco type: cigarettes Second hand tobacco smoke exposure: Yes Alcohol intake: never Drinks per week: 0 Substance use: never Substance use type: does not use Do You Feel Safe in your Home?: Yes Lack of Transportation: No Lack of Food: Never True Current Housing: I Have Housing Concerned About Future Housing: No Difficulty Paying Gas/Electric Bills: No Difficulty Paying for Meds: No Currently Unemployed: No Education: High School Diploma/GED Difficulty w/ Childcare or Family Care: No Additional living arrangements comments: with 2 children. Lives with spouse in [place]. 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 Spiritual care concerns: No Exam Narrative: GENERAL APPEARANCE: WELL-DEVELOPED, WELL-NOURISHED SKIN: NORMAL COLOR HEAD: NORMOCEPHALIC, NONTRAUMATIC EYES: CLEAR CONJUNCTIVA ENT: OROPHARYNX NORMAL, EARS NORMAL, NOSE NORMAL NECK: SUPPLE, NONTENDER CHEST AND RESPIRATORY: AIRWAY PATENT, NO RESPIRATORY DISTRESS, NO ACCESSORY MUSCLE USE HEART: REGULAR RATE/RHYTHM ABDOMEN: SOFT, NONTENDER, NO ORGANOMEGALY, QUIET BOWEL SOUNDS VASCULAR: NORMAL PERIPHERAL PULSES, NORMAL CAPILLARY REFILL. MUSCULOSKELETAL: NORMAL RANGE OF MOTION, NONTENDER BACK NEUROLOGIC: ALERT AND ORIENTED ?3, FLIGHT CONTROL SPECIALIST IS NORMAL TESTED, NO GROSS MOTOR DEFICIT Course Vital Signs Vital signs: Vital Signs Temperature 36.8 C 12/07/23 11:19 Pulse Rate 88 12/07/23 11:19 Respiratory Rate 18 12/07/23 11:19 Blood Pressure 127/77 12/07/23 11:19 Pulse Oximetry 99 12/07/23 11:19 Oxygen Delivery Room Air 12/07/23 11:19 Temperature 36.4 C 12/07/23 15:11 Pulse Rate 75 12/07/23 15:11 Respiratory Rate 20 12/07/23 15:11 Blood Pressure 144/86 H 12/07/23 15:11 Pulse Oximetry 100 12/07/23 15:11 Oxygen Delivery Room Air 12/07/23 11:19 MDM - Male Genitourinary MDM Narrative Medical decision making n
[2023-12-07 11:49] LABS: Basophils Percent Auto 1.3 % (0.2-1.2); Hematocrit 28.9 % (42.0-52.0); Hemoglobin 9.5 g/dL (14.0-18.0); Immature Platelet Fraction Pct 1.9 % (0.9-11.2); Lymphocytes Absolute Auto 0.78 K/mm3 (0.9-3.2); Lymphocytes Percent Auto 97.4 % (18.3-44.2); Mean Corpuscular HGB Conc 32.9 g/dl (32-36); Mean Corpuscular Hemoglobin 32.1 pg (26-34); Mean Corpuscular Volume 97.6 fl (80-100); Mean Platelet Volume 12.3 fl (7.4-10.4); Monocytes Percent Auto 1.3 % (2.6-8.5); Red Blood Count 2.96 M/mm3 (4.6-6.20); Red Cell Distribution Width 15.3 % (11.5-14.5)
[2023-12-07 11:57] LABS: Alanine Aminotransferase 27 U/L (6-50); Albumin Level 4.2 g/dL (3.5-5.1); Alkaline Phosphatase 62 U/L (38-126); Anion Gap 8 mmol/L (4-12); Aspartate Amino Transferase 26 U/L (17-59); Bilirubin,Total 0.2 mg/dL (0.2-1.3); Blood Urea Nitrogen 28 mg/dL (9-20); Calcium 9.6 mg/dL (8.4-10.2); Carbon Dioxide 26 mmol/L (22-30); Chloride 106 mmol/L (98-107); Estimated Glomerular Filt Rate > 60; Glucose 83 mg/dL (65-110); Sodium 140 mmol/L (137-145)
[2023-12-07 12:05] LABS: Partial Thromboplastin Time 31.3 Seconds (22.3-36.8); Prothrombin Time 13.2 Seconds (11.1-14.7)
[2023-12-07 12:06] LABS: Bacteria Urine None Seen /hpf; Need Manual Microscopic Reviewed; Non Pathogenic Casts 0-2; RBC Urine >100 /hpf (0-2); Squamous Epithelial Cell Urine None Seen /hpf (Few); WBC Urine 0-5 /hpf (0-3)
[2023-12-07 12:07] LABS: Add Urine Microscopic? YES; Appearance Urine Turbid (Clear); Bilirubin Urine 1+ (Negative); Blood Urine 3+ (Negative); Color Urine Red (Yellow); Glucose Urine UA Negative (Negative); Ketones Urine Negative (Negative); Leukocyte Esterase Ur 1+ LEU/UL (Negative); Nitrate Urine Negative (Negative); Protein Urine 2+ mg/dL (Negative); Specific Grav Ur 1.019 (1.001-1.035); Urobilinogen Urine 0.2 mg/dL (<2.0)
[2023-12-07 12:17] LABS: Platelet Count Result 15 k/mm3 (150-375); White Blood Count 0.8 K/mm3 (4.5-10.0)
[2023-12-07 14:55] VITALS: BP 130/96; PULSE 56; RESP 20; TEMP 36.8; O2SAT 100
[2023-12-07] MEDS: SODIUM CHLORIDE 0.9% IV 250 ML 30 ML IV CONT (14:58)
[2023-12-07] MEDS: TUBING, BLOOD SET 1 EACH XX (14:58)
[2023-12-07 15:11] VITALS: BP 144/86; PULSE 75; RESP 20; TEMP 36.4; O2SAT 100
[2023-12-07 15:36] VITALS: BP 133/94; PULSE 70; RESP 18; TEMP 36.4; O2SAT 100
== END 2023-12-07 15:42 | disposition home or self-care (01) ==
PROVIDERS: Emergency Provider Emergency Medicine; PCP Family Medicine
DX: D69.6 Thrombocytopenia, unspecified (principal); C95.90 Leukemia, unspecified not having achieved remission; J44.9 Chronic obstructive pulmonary disease, unspecified; E78.5 Hyperlipidemia, unspecified; Z86.73 Personal history of transient ischemic attack (TIA), and cerebral infarction without residual deficits; Z87.891 Personal history of nicotine dependence; Z98.42 Cataract extraction status, left eye; Z98.41 Cataract extraction status, right eye; Z90.49 Acquired absence of other specified parts of digestive tract
CPT/HCPCS: 36415; 36430; 80053; 81001; 85025; 85055; 85610; 85730; 86850; 86900; 86901; 87086; 96360; 99283; 99285; J7050; P9034

== ENCOUNTER 2024-01-26 09:23 | Emergency (ER) | payer BC, SELFPAY ==
--- NOTE | ~2024-01-26 | CT_ITS ---
EXAMINATION: CT brain wo con DATE: 01/26/2024 10:25 INDICATION: Head injury. Syncope. TECHNIQUE: Computed tomography (CT) of the head was performed without intravenous contrast. The mA wa s adjusted according to patient size. Iterative reconstruction technique was employed. The dose-lengt h product was 605.33 mGy-cm. COMPARISON: Head CT 04/05/2022 FINDINGS: There is an acute subdural hematoma at the falx with maximum diameter of 2 mm. There are sc attered areas of low attenuation in the cerebral white matter, which is within normal limits for the patient's age. There is no acute ischemic infarct or abnormal mass lesion. The ventricles are normal in size. There are likely changes of ocular lens replacement surgeries. There is a posterior scalp he matoma. There is mild mucosal thickening in the paranasal sinuses. The mastoid air cells are normal. IMPRESSION: 1. Small acute subdural hematoma at the falx. I called this result to Loly Degroot. Reviewed, dictated and finalized at location A. OPHYSIOLOGY TECH IMPRESSION: 1. Small acute subdural hematoma at the falx. I called this result to Loly Nieves.
--- NOTE | ~2024-01-26 | CT_ITS ---
EXAMINATION: CT cervical spine wo con DATE: 01/26/2024 10:25 INDICATION: Head injury. TECHNIQUE: Computed tomography (CT) of the cervical spine was performed without intravenous contrast. Automated exposure control and iterative reconstruction technique were employed. The dose-length pro duct was 415.75 mGy-cm. COMPARISON: CT cervical spine 04/05/2022 FINDINGS: There is mild emphysema. There is mild scarring at the lung apices. There is a 4 mm nodule at right lung apex, likely benign. There is 10 degrees dextroscoliosis of cervical spine. There is ky phosis of lower cervical spine. There is 2 mm retrolisthesis of C6 on C7. Vertebral body heights are normal. There is mildly decreased disc height at C3-C4, moderately decreased disc height at C4-C5 and C5-C6, and severely decreased disc height at C6-C7. The following disc levels are specifically discu ssed: C2-C3: There is severe bilateral uncovertebral joint osteoarthritis. There is severe bilateral facet joint osteoarthritis. There is moderate left neural foraminal stenosis. There is mild central canal s tenosis. C3-C4: There is mild bilateral uncovertebral joint osteoarthritis. There is moderate and severe left facet joint osteoarthritis. There is mild left neural foraminal stenosis. There is mild central canal stenosis. C4-C5: There is mild right and severe left uncovertebral joint osteoarthritis. There is mild right fa cet joint osteoarthritis. There is ankylosis of left facet joint with moderate hypertrophy. There is moderate left neural foraminal stenosis. There is mild central canal stenosis. C5-C6: There is mild bilateral uncovertebral joint osteoarthritis. There is severe bilateral facet lupillo int osteoarthritis. There is mild bilateral neural foraminal stenosis. There is mild central canal st enosis. C6-C7: There is severe bilateral uncovertebral joint osteoarthritis. There is severe bilateral facet joint osteoarthritis. There is mild right and moderate left neural foraminal stenosis. There is moder ate central canal stenosis. C7-T1: There is no uncovertebral joint osteoarthritis. There is severe bilateral facet joint osteoart hritis. There is mild bilateral neural foraminal stenosis. There is no central canal stenosis. IMPRESSION: 1. No fracture. 2. Severe cervical spondylosis. Reviewed, dictated and finalized at location A. LE DEPARTMENT WORKER
[2024-01-26 09:26] VITALS: BP 154/95; PULSE 94; RESP 16; TEMP 36.4; O2SAT 100
[2024-01-26 10:00] VITALS: BP 152/80; PULSE 88; RESP 16; TEMP 36.6; O2SAT 98
--- NOTE | 2024-01-26 10:36 | PC.NURSE ---
has c/o dizziness with any movement
--- NOTE | 2024-01-26 10:37 | ECG_ITS ---
Test Date: 2024-01-26 10:54:23 Measurements Intervals [place] Rate: 74 P: 0 NC: 0 QRS: 63 QRSD: 97 T: 67 QT: 406 QTc: 453 Interpretive Statements SINUS RHYTHM No previous ECG available for comparison Electronically Signed On 01-26-2024 14:28:41 CLERICAL AIDE TEACHER by Sixto Go M.D.
--- NOTE | 2024-01-26 10:39 | ED_ITS ---
HPI - Head Injury General Chief complaint: Wound/Laceration Stated complaint: lac Time Seen by Provider: 01/26/24 09:59 History of Present Illness HPI Narrative: Patient is a 63-year-old male who presents to the ER after falling and hitting his head on the concrete. He reports he was walking across the pavement was covered with snow. He hit a area with ice underneath and reports I went down quick. patient reports he landed on the back of his head and is unsure whether not he lost consciousness but reports everything turned white. When patient regained consciousness he reports my arms flew up like I have seen players in the NFL do after they have a concussion. Patient denies vision changes but endorses severe headache and extreme vertigo. He denies any shortness of breath, chest pain, back pain, or vomiting. Related Data Home Medications Medication Instructions Recorded Confirmed cabergoline 0.5 mg tablet 0.5 mg PO 2XW 06/24/23 07/07/23 Allergies Allergy/AdvReac Type Severity Reaction Status Date / Time bromocriptine Allergy Severe Anaphylaxis Verified 12/07/23 11:23 Review of Systems Review of Systems: All systems reviewed & are unremarkable except as noted in HPI and below PMFSH Past Medical History Medical History Chronic obstructive pulmonary disease Former smoker Hyperlipidemia Insomnia Pituitary adenoma (1994) Transient ischemic attack (1993) Surgical History Surgical History History of bilateral cataract extraction (04/2021) History of cholecystectomy (2010) History of tonsillectomy (1967) Family History Family History Other No pertinent family history Social History Social History Social History: Code status: Full code. Smoking packs per day: 1 Smoking cigarettes per day: 20.0 Years smoked: 40 Smoking pack-years: 40.00 Smoking status: Former smoker Tobacco type: cigarettes Second hand tobacco smoke exposure: Yes Alcohol intake: never Drinks per week: 0 Substance use: never Substance use type: does not use Do You Feel Safe in your Home?: Yes Lack of Transportation: No Lack of Food: Never True Current Housing: I Have Housing Concerned About Future Housing: No Difficulty Paying Gas/Electric Bills: No Difficulty Paying for Meds: No Currently Unemployed: No Education: High School Diploma/GED Difficulty w/ Childcare or Family Care: No Additional living arrangements comments: with 2 children. Lives with spouse in [place]. 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 Spiritual care concerns: No Exam Narrative: GENERAL: Well appearing, well-nourished, non-toxic, in no acute distress. HEAD: Normocephalic, small 1/2 inch linear laceration to the back of pt's head, bleeding controlled. NECK: Supple. No adenopathy, no masses. RESPIRATORY: Airway patent, respirations nonlabored. Clear to auscultation bilaterally, no rales, rhonchi, wheezing. CARDIOVASCULAR: Regular rate and rhythm without murmurs, rubs, or gallops. Peripheral pulses 2+ and equal bilaterally. ABDOMINAL: Soft, nontender, nondistended, no hepatosplenomegaly. Normoactive BS. MUSCULOSKELETAL: Moves all extremities. Strength/ROM intact without gross deformities. SKIN: Warm, dry, normal color. No rashes. NEURO: A&O X3. Speech clear. Cranial nerves II-XII grossly intact. No ataxic movements. Endorses headache and increased vertigo with movement. PSYCHIATRIC: Appropriate mood and affect. Normal interaction. Course Vital Signs Vital signs: Vital Signs Temperature 36.4 C 01/26/24 09:26 Pulse Rate 94 01/26/24 09:26 Respiratory Rate 16 01/26/24 09:26 Blood Pressure 154/95 H 01/26/24 09:26 Pulse Oximetry 100 01/26/24 09:26 Oxygen Delivery Room Air 01/26/24 09:26 Temperature 36.4 C 01/26/24 10:50 Pulse Rate 81 01/26/24 10:50 Respiratory Rate 16 01/26/24 10:50 Blood Pressure 165/99 H 01/26/24 10:50 Pulse Oximetry 100 01/26/24 10:50 Oxygen Delivery Room Air 01/26/24 09:26 MDM - Head Injury MDM Narrative Medical decision making narrative: Patient is a 63-year-old male who presents to the ER after falling and hitting his head on the concrete. He reports he was walking across the pavement was covered with snow. He hit a area with ice underneath and reports I went down quick. patient reports he landed on the back of his head and is unsure whether not he lost consciousness but reports everything turned white. When patient regained consciousness he reports my arms flew up like I have seen players in the NFL do after they have a concussion. Patient denies vision changes but endorses severe headache and extreme vertigo. He denies any shortness of breath, chest pain, back pain, or vomiting. Labs Ordered: CBC, CMP, troponin, PTT, INR, UA Imaging Ordered: head CT scan, cervical spine CT scan Results: Pt's head CT scan indicates Small acute subdural hematoma at the falx. Diagnosis: Subdural hematoma Patient Education/Shared MDM: Pt requesting discharge to [facility] for further treatment Disposition/Plan: Results shared with pt. Pt verbalizes understanding of diagnosis and the plan to transfer to a trauma hospital for a higher level of care. [id number] is here to transport pt to [facility]. Dr. Macdonald was accepting physician. VSS and pt is A & O x 4 at time of transfer. Differential Diagnosis Differential diagnosis: Likely epidural hematoma, closed head injury, subarachnoid hematoma, subdural hematoma and concussion with loss of consciousness Lab Data Attestation: I reviewed the patient's lab results. 01/26/24 10:51 01/26/24 10:51 Labs: Lab Results 01/26/24 Range/Units 10:51 WBC 10.7 H (4.5-10.0) K/mm3 RBC 4.06 L (4.6-6.20) M/mm3 Hgb 12.8 L D (14.0-18.0) g/dL Hct 40.5 L (42.0-52.0) % MCV 99.8 (80-100) fl MCH 31.5 (26-34) pg MCHC 31.6 L (32-36) g/dl RDW 14.5 (11.5-14.5) % Plt Count 202 D (150-375) k/mm3 MPV 10.0 (7.4-10.4) fl Immature Gran % (Auto) 0.5 (0-0.5) % Neut % (Auto) 71.8 (45.5-73.1) % Lymph % (Auto) 17.4 L (18.3-44.2) % Ada % (Auto) 7.7 (2.6-8.5) % Eos % (Auto) 2.0 (0-4.4) % Baso % (Auto) 0.6 (0.2-1.2) % Lymph # (Auto) 1.86 (0.9-3.2) K/mm3 Ada # (Auto) 0.8 H (0.1-0.6) K/mm3 Eos # (Auto) 0.2 (0-0.3) K/mm3 Baso # (Auto) 0.1 (0.0-0.1) K/mm3 Abs Immat Gran (auto) 0.05 H (0.00-0.031) K/mm3 Absolute Neuts (auto) 7.7 H (1.3-6.7) K/mm3 Absolute Nucleated RBC 0.000 (0.0-0.012) K/mm3 Nucleated RBC % 0.0 (0.0-0.2) % PT 13.1 (11.1-14.7) Seconds INR 0.9 APTT 25.3 (22.3-36.8) Seconds Sodium 140 (137-145) mmol/L Potassium 3.9 (3.4-5.0) mmol/L Chloride 107 (98-107) mmol/L Carbon Dioxide 29 (22-30) mmol/L Anion Gap 4 (4-12) mmol/L BUN 11 D (9-20) mg/dL Creatinine 0.60 L (0.7-1.3) mg/dL Estim Creat Clear Calc 142 ml/min Estimated GFR > 60 (59 - ) Glucose 102 (65-110) mg/dL Calcium 9.7 (8.4-10.2) mg/dL Total Bilirubin 0.6 (0.2-1.3) mg/dL AST 31 (17-59) U/L ALT 20 (6-50) U/L Alkaline Phosphatase 80 (38-126) U/L Troponin I Pending Total Protein 8.0 (6.3-8.2) g/dL Albumin 4.8 (3.5-5.1) g/dL Urine Color Pending Urine Appearance Pending Urine pH Pending Ur Specific [place] Pending Urine Protein Pending Urine Glucose (UA) Pending Urine Ketones Pending Ur Blood (Man) Pending Urine Nitrate Pending Urine Bilirubin Pending Urine Urobilinogen Pending Leukocyte Esterase Rfl Pending Imaging Data Attestation: I personally reviewed and interpreted this imaging study as radha fairbanks: Radiologist's impression: Impressions Head CT 01/26/24 10:26 IMPRESSION: 1. Small acute subdural hematoma at the falx. I called this result to Loly Degroot. Cervical Spine CT 01/26/24 10:29 IMPRESSION: 1. No fracture. 2. Severe cervical spondylosis. Discharge Plan Discharge Clinical Impression: Subdural hematoma, acute Patient Disposition: Acute Care Hospital Condition: Stable Prescriptions: No Action cabergoline 0.5 mg tablet 0.5 mg PO 2XW Rx Instructions: Friday, Friday nystatin 100,000 unit/mL suspension 100,000 unit PO QID 14 Days Qty: 56 0RF Rx Instructions: administer 1/2 of dose in each side of the mouth albuterol sulfate 90 mcg/actuation HFA aerosol inhaler 2 puff inhalation Q6-8H PRN (Reason: shortness of breath or wheezing) Qty: 25.5 2RF fluticasone propionate 50 mcg/actuation spray,suspension 1 spray intranasal BID Qty: 16 4RF Rx Instructions: administer into each nostril Trelegy Ellipta 100-62.5-25 mcg blister with device 1 inh inhalation DAILY Qty: 60 5RF Follow-up/Referrals: Elvia Kapoor MD [Primary Care Provider] - Time of Disposition: 11:27
[2024-01-26 10:50] VITALS: BP 165/99; PULSE 81; RESP 16; TEMP 36.4; O2SAT 100
[2024-01-26 11:07] LABS: Basophils Absolute Auto 0.1 K/mm3 (0.0-0.1); Basophils Percent Auto 0.6 % (0.2-1.2); Eosinophils Absolute Auto 0.2 K/mm3 (0-0.3); Hematocrit 40.5 % (42.0-52.0); Hemoglobin 12.8 g/dL (14.0-18.0); Immature Granulocyte Absolute 0.05 K/mm3 (0.00-0.031); Immature Granulocyte Percent A 0.5 % (0-0.5); Lymphocytes Absolute Auto 1.86 K/mm3 (0.9-3.2); Lymphocytes Percent Auto 17.4 % (18.3-44.2); Mean Corpuscular HGB Conc 31.6 g/dl (32-36); Mean Corpuscular Hemoglobin 31.5 pg (26-34); Mean Corpuscular Volume 99.8 fl (80-100); Monocytes Absolute Auto 0.8 K/mm3 (0.1-0.6); Monocytes Percent Auto 7.7 % (2.6-8.5); Neutrophils Absolute Auto 7.7 K/mm3 (1.3-6.7); Neutrophils Percent Auto 71.8 % (45.5-73.1); Platelet Count Result 202 k/mm3 (150-375); Red Blood Count 4.06 M/mm3 (4.6-6.20); Red Cell Distribution Width 14.5 % (11.5-14.5); White Blood Count 10.7 K/mm3 (4.5-10.0)
[2024-01-26 11:13] LABS: Add Urine Microscopic? YES; Appearance Urine Clear (Clear); Bacteria Urine None Seen /hpf; Bilirubin Urine Negative (Negative); Blood Urine Negative (Negative); Color Urine Yellow (Yellow); Glucose Urine UA Negative (Negative); Ketones Urine Negative (Negative); Leukocyte Esterase Ur Trace LEU/UL (Negative); Nitrate Urine Negative (Negative); Non Pathogenic Casts 0-2; Protein Urine Negative (Negative); Specific Grav Ur 1.011 (1.001-1.035); Squamous Epithelial Cell Urine None Seen /hpf (Few); Urobilinogen Urine 0.2 mg/dL (<2.0); WBC Urine 0-5 /hpf (0-3); pH Urine 6.5 (5.0-9.0)
[2024-01-26 11:20] LABS: INR 0.9; Prothrombin Time 13.1 Seconds (11.1-14.7)
[2024-01-26 11:21] LABS: Partial Thromboplastin Time 25.3 Seconds (22.3-36.8)
[2024-01-26 11:25] LABS: Alanine Aminotransferase 20 U/L (6-50); Albumin Level 4.8 g/dL (3.5-5.1); Alkaline Phosphatase 80 U/L (38-126); Anion Gap 4 mmol/L (4-12); Aspartate Amino Transferase 31 U/L (17-59); Bilirubin,Total 0.6 mg/dL (0.2-1.3); Blood Urea Nitrogen 11 mg/dL (9-20); Calcium 9.7 mg/dL (8.4-10.2); Carbon Dioxide 29 mmol/L (22-30); Chloride 107 mmol/L (98-107); Estimated CRCL calculation 142 ml/min; Estimated Glomerular Filt Rate > 60; Glucose 102 mg/dL (65-110); Potassium 3.9 mmol/L (3.4-5.0); Sodium 140 mmol/L (137-145)
[2024-01-26 11:34] LABS: Troponin I < 0.012 ng/mL (0.000-0.034)
== END 2024-01-26 11:43 | disposition short-term general hospital (02) ==
PROVIDERS: Emergency Provider Registered Nurse; PCP Family Medicine
DX: S06.5X9A Traumatic subdural hemorrhage with loss of consciousness of unspecified duration, initial encounter (principal); J44.9 Chronic obstructive pulmonary disease, unspecified; E78.5 Hyperlipidemia, unspecified; Z86.73 Personal history of transient ischemic attack (TIA), and cerebral infarction without residual deficits; Z87.891 Personal history of nicotine dependence; Z98.42 Cataract extraction status, left eye; Z98.41 Cataract extraction status, right eye; Z90.49 Acquired absence of other specified parts of digestive tract; M47.812 Spondylosis without myelopathy or radiculopathy, cervical region; W00.2XXA Other fall from one level to another due to ice and snow, initial encounter
CPT/HCPCS: 36415; 70450; 72125; 80053; 81001; 84484; 85025; 85610; 85730; 93005; 99285

== ENCOUNTER 2024-04-01 10:15 | Outpatient (RCR) | payer BC, SELFPAY ==
--- NOTE | 2024-03-03 14:38 | OPREHPOC ---
Outpatient Therapy Plan of Care This is a Multidisciplinary Plan of Care that may contain components documented by all disciplines (PT, OT, and ST.) PT Problem 1 PT Problem #1 Knowledge Deficit PT Goal 1 Goal / Goal Update Pt to be IND with issued HEP Target Visit 6 PT Goal 1 Goal / Goal Update 1. Pt to improve single leg stance balance to 10s on ea side 2. Pt to demonstrate eye closed balance for 10s without LOB Target Visit 6 PT Problem 3 PT Problem #3 Impaired Functional Mobility PT Goal 1 Goal / Goal Update 1. Pt to demonstrate a 20lb lift and carry without a LOB. Target Visit 6
--- NOTE | 2024-03-03 14:38 | PTOPEVAL1 ---
Assessment and note entered by Zeke Vu, PT, DPT Evaluation Information Assessment Status Evaluation Diagnosis fall leaving to subarachnoid hemorrage Subjective Information Pt states a month ago he slipped on a patch of ice and fell backwards onto his head. He has a subarachnoid hemorrhage d/t this. He reports loss of balance, loss of thoughts at times, loss of taste and smell. He was out of work for 2 weeks and has only gone 1 weeks without daily headaches. 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 States he feels like he always is loosing his balance to the left. Reported Pain Level Pain Score 0: Self Report Assessment PT Clinical Summary Pt presents to therapy today for his initial evaluation following a fall with subsequent subarachnoid hemorrhage. Today he reports decreased balance since the fall, a L sided lean with static standing, and decreased functional mobility. His static balance is decreased, especially in single leg stance. Skilled therapy services are indicated to address the deficits noted above, to improve balance, and to return to prior level of function. Plan of Care Interventions Gait Training,Hot Pack/Cold Pack,Manual Therapy, Neuro Re-education,Patient/Caregiver Education, Therapeutic Activities,Therapeutic Exercise PT Services Indicated Yes Treatment Frequency and 1x/wk for 6 visits Duration These treatments will address the objective and functional deficits as defined above. The patient will be advanced safely and appropriately in order for the patient to progress towards his/her prior level of function. Additional exercises will be introduced and as well as a comprehensive home exercise program upon discharge, if needed, ?to ensure carryover of functional gains achieved in the clinic. This treatment plan has been reviewed and agreement upon by the patient.
--- NOTE | 2024-04-01 11:56 | OPREHPOC ---
Outpatient Therapy Plan of Care This is a Multidisciplinary Plan of Care that may contain components documented by all disciplines (PT, OT, and ST.) PT Problem 1 PT Problem #1 Knowledge Deficit PT Goal 1 Goal / Goal Update Pt to be IND with issued HEP Target Visit 6 Progress Met PT Goal 1 Goal / Goal Update 1. Pt to improve single leg stance balance to 10s on ea side 2. Pt to demonstrate eye closed balance for 10s without LOB 04/01/24: 1. Progressing 2. met Target Visit 6 PT Problem 3 PT Problem #3 Impaired Functional Mobility PT Goal 1 Goal / Goal Update 1. Pt to demonstrate a 20lb lift and carry without a LOB. 04/01/24: met Target Visit 6 Progress Met
--- NOTE | 2024-04-01 11:57 | PTOPDC ---
Assessment and note entered by Zeke Vu, PT, DPT Evaluation Information Assessment Status Progress Diagnosis fall leaving to subarachnoid hemorrage Subjective Information Pt states he notices no change in his balance after a month long participation in therapy. He is waiting for a neurology consult but has not heard anymore about this in a while. Pt states he has a couple of stutter steps when he first goes to walk, has decreased taste and smell , and always notices himself losing his balance to the L. Reported Pain Level Pain Score 0: Self Report Assessment PT Clinical Summary Pt presents to therapy today for his progress report following 5 visits of skilled therapy to treat the deficits related to a subarachnoid hemorrhage. Today he demonstrates some improvement on the DGI and HURTADO. He continues to report initially having to shuffle his feet to initiate ambulation, he also tends to veer to the L. He demonstrates IND with his HEP and would like to continue this IND while waiting to see neuro as he has additional concerns. He will be discharged at this time. Plan of Care PT Services Indicated No
== END 2024-04-01 14:39 | disposition home or self-care (01) ==
LOC: ANHGOSHPT 10:15
PROVIDERS: PCP Family Medicine; Visit Provider Family Medicine
DX: Z91.81 History of falling (principal); S06.5XAA Traumatic subdural hemorrhage with loss of consciousness status unknown, initial encounter; R26.89 Other abnormalities of gait and mobility
CPT/HCPCS: 97110; 97112; 97161; 97750

== ENCOUNTER 2024-08-13 09:11 | Outpatient (CLI) | payer BC, SELFPAY ==
[2024-08-13 18:48] LABS: Cholesterol 239 mg/dL (0-200); HDL Direct 44 mg/dL; Triglycerides 83 mg/dL (<150)
[2024-08-13 18:58] LABS: Hemoglobin A1C 5.4 % (<5.7)
[2024-08-13 18:59] LABS: LDL Cholesterol Direct 155 mg/dL
[2024-08-13 19:02] LABS: Free T4 Free Thyroxine 1.16 ng/dL (0.78-2.19); Vitamin D 25 Hydroxy 28.9 ng/mL
[2024-08-13 19:31] LABS: Thyroid Stimulating Hormone 0.617 uIU/mL (0.465-4.680)
[2024-08-13 19:35] LABS: Cortisol Random 6.75 ug/dL
[2024-08-14 13:27] LABS: LH. 6.6 mIU/mL (1.6-15.2)
[2024-08-17 19:18] LABS: Testosterone Free 66.8 pg/mL (35.0-155.0); Testosterone Total 586 ng/dL (250-1100)
== END 2024-08-13 09:12 | disposition home or self-care (01) ==
LOC: ANHGOSHLAB 09:13
PROVIDERS: PCP Family Medicine; Visit Provider Family Medicine
DX: Z12.5 Encounter for screening for malignant neoplasm of prostate (principal); E55.9 Vitamin D deficiency, unspecified; D35.2 Benign neoplasm of pituitary gland; E22.1 Hyperprolactinemia; R73.9 Hyperglycemia, unspecified
CPT/HCPCS: 36415; 80061; 82306; 82533; 82607; 83001; 83002; 83003; 83036; 84146; 84153; 84402; 84403; 84439; 84443; G0103

== ENCOUNTER 2025-01-27 09:07 | Outpatient (CLI) | payer BC, SELFPAY ==
--- OUTSIDE RECORDS SUMMARY | 2025-01-27 09:44 | XMS_ITS | Clinical Summary ---
Author Organization [facility] Address [address] [place] [id number] Care Team Providers Care Imcu Specialist Name Role Phone Unavailable Primary Care Provider Unavailabl e Social History Tobacco Use Types Packs/Day Years Used Date Smoking Tobacco: Never Assessed Sex and Gender Information Value Date Recorded Sex Assigned at Not on file Legal Sex Male 6:24 PM CDT Gender Identity Not on file Sexual Orientation Not on file Plan of Treatment Health Maintenance Due Date Last Done Comments Colorectal Cancer Screening Colonoscopy (10 Years) 1962 Annual Physical 1965 Hepatitis C 1980 DTaP, Tdap and Td Vaccines ( 1 - Tdap) 1981 Pneumococcal Vaccine: 50+ Ye ars (1 of 1 - PCV) 2012 Zoster Vaccines (1 of 2) 2012 COVID-19 Vaccine (1 - 2024-2 6 season) 2024 Influenza Adult (#1) 2024 RSV Immunization or 60+ Years (1 - 1-dose 75+ series) 2037 Hepatitis A Vaccines Aged Out No long er eligible based on patient's age to complete this topic Meningococcal B Vaccine Aged Out No l onger eligible based on patient's age to complete this topic Meningococcal Vaccine Aged Out No meggan ben eligible based on patient's age to complete this topic RSV Immunizations Under 20 Months Aged Out No longer eligible based on patient's age to complete this topic
--- OUTSIDE RECORDS SUMMARY | 2025-01-27 09:44 | XMS_ITS | Clinical Summary ---
Author Organization [facility] Address [address] [place] [address] Phone Care Team Providers Care Pet Care Attendant Name Role Phone Malachi Kapoor MD Primary Care Provider Allergies Active Allergy Reactions Criticality Noted Date Comments Bromocriptine Seizure High 08/28/2018 Medications albuterol HFA 90 mcg inhaler Take 2 Puffs by inhalation every 4 hours as needed for Shortness of Breath. 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 No 08/27/2018 Within the last year, have y ou been humiliated or emotionally abused in other ways by your partner or ex-partner? No Within the last year, have y ou been kicked, hit, slapped, or otherwise physically hurt by your partner or ex-partner? No 08/27/2018 Within the last year, have y ou been raped or forced to have any kind of sexual activity by your partner or ex-partner? No 08/27/2018 Social Connections Answer Date Recorded In a typical week, how many times do you talk on the phone with family, friends, or neighbors? More than three times a week 08/27/2018 How often do you get togethe r with friends or relatives? Twice a week 08/27/2018 How often do you attend chur ch or worship services? Never 08/27/2018 Do you belong to any clubs o r organizations such as latter-day groups, unions, fraternal or athletic groups, or school groups? No 08/27/2018 How often do you attend meet ings of the clubs or organizations you belong to? Never 08/27/2018 Are you , , di vorced, , never , or living with a partner? 08/27/2018 Financial Resource Strain Answer Date R ecorded How hard is it for you to pa y for the very basics like food, housing, medical care, and heating? Not hard at all 08/27/2018 Food Insecurity Answer Date Recorded Within the past 12 months, y ou worried that your food would run out before you got the money to buy more. Never true 08/28/19 19 Within the past 12 months, t he food you bought just didn't last and you didn't have money to get more. Never true 08/27/2018 Transportation Needs Answer Date Record ed In the past 12 months, has l ack of transportation kept you from medical appointments or from getting medications? No 05/2018 In the past 12 months, has l ack of transportation kept you from meetings, work, or from getting things needed for daily living? No 08/27/2018 Education Answer Date Recorded What is the highest level of school you have completed or the highest degree you have received? Associate degree: academic program 08/27/2018 Sex and Gender Information Value Date Recorded Sex Assigned at Not on file Legal Sex Male 9:10 AM CDT Gender Identity Not on file Sexual Orientation Not on file Last Filed Vital Signs Vital Sign Reading Time Taken Comments Blood Pressure 118/71 08/28/2018 2:25 PM CDT Pulse 59 08/28/2018 2:25 PM CDT Temperature 36.7 C (98 F) 08/28/2018 2:25 PM CDT Respiratory Rate 16 08/28/2018 10:1 0 AM CDT Oxygen Saturation 98% 08/28/2018 2:25 PM CDT Inhaled Oxygen Concentration - - Weight 118.2 kg (260 lb 9.3 oz) 08/27/2018 1:26 PM CDT Height 195.6 cm (6' 5) 08/27/2018 1:26 PM CDT Body Mass Index 30.9 08/27/2018 1:26 PM CDT Plan of Treatment Health Maintenance Due Date Last Done Comments DTAP/TDAP/TD VACCINES (1 - Tdap) 1981 COLORECTAL SCREENING 09/16/2007 Colorectal Cancer Screening 09/16/2007 FIT-DNA Q 3 years 09/16/2007 FIT/FOBT Q 1 year 09/16/2007 Flex Sig/CT Colonography Q 5 years 09/16/2007 RSV VACCINE (60+ or ) (1 - Risk 50-74 years 1-dose series) 2012 ZOSTER VACCINE (1 of 2) 2012 INFLUENZA VACCINE (#1) 2024 01/02/2023, 2021 Insurance [employer] PPO [employer] P[employer] Advance Directives For more information, please contact: [phone] * Full Code (Latest Code Status on File) Date Activated Date Inactivated Comments 08/27/2018 1:49 PM 08/28/2018 5:19 PM Care Teams Pet Care Attendant Relationship Specialty Start Date End Date Malachi Kapoor MD [address] [place] [address] PCP - General Family Practice 08/27/18
--- OUTSIDE RECORDS SUMMARY | 2025-01-27 09:44 | XMS_ITS | Encounter Summary ---
Author Organization [facility] Address [address] [place] [address] Care Team Providers Care [facility] Name Role Phone John Agrawal MD Unavailable [phone] Teresa Alatorre MD Unavailable [phone] Ethan Bravo MD Unavailable Janiya Yang PharmD Unavailable Unavailab Elyse Boggs RN Unavailable Unavailable Namita Padilla COLOR WEIGHER-HEEL SEAT FILLER Unavailable Nalini Holliday RN Unavailable Unavailable Shannon Ochoa RN Unavailable Unavaila Mai DavalosW Unavailable Unavailab Senait Cruz Unavailable Demi Mayra Castro Unavailable Unavailable Unknown, Provider Primary Care Provider Unavaila Malachi Almazan MD Primary Care Provider Tommy Calles MD Unavailable Stevie Parker MD Unavailable [phone] Encounter Details Date Type Department Care Team (Late st Contact Info) Description 10/17/2023 Ophth Exam [facility] - Ophthalmology [address] [place] [address] Ap Kim MD [address] [facility] [place] [address] Social History Tobacco Use Types Packs/Day Years Used Date Smoking Tobacco: Every Day Cigarettes 1 45.9 Started: 02/24/1979 Passive Smoke Exposure: Current Smokeless Tobacco: Never Alcohol Use Standard Drinks/Week Comments Never 0 (1 standard drink = 0.6 oz pur e alcohol) AUDIT-C Answer Date Recorded Q1: How often do you have a drink containing alcohol? Never 10/13/2023 Q2: How many drinks containi ng alcohol do you have on a typical day when you are drinking? Patient does not drink Q3: How often do you have si x or more drinks on one occasion? Never 10/13/2023 Overall Financial Resource Strain (CARDIA) Answe r Date Recorded How hard is it for you to pa y for the very basics like food, housing, medical care, and heating? Not hard at all 10/13/2023 [facility] [place] [facility] - Occupational Stress Questionnaire Answer Date Recorded Do you feel stress - tense, restless, nervous, or anxious, or unable to sleep at night because your mind is troubled all the time - these days? Not at all 10/13/2023 Hunger Vital Sign Answer Date Recorded Within the past 12 months, y ou worried that your food would run out before you got the money to buy more. Never true 10/13/19 24 Within the past 12 months, t he food you bought just didn't last and you didn't have money to get more. Never true 10/13/2023 PRAPARE - Transportation Answer Date Re corded In the past 12 months, has l ack of transportation kept you from medical appointments or from getting medications? No 09/24 In the past 12 months, has l ack of transportation kept you from meetings, work, or from getting things needed for daily living? No 10/13/2023 Housing Stability Vital Sign Answer Delmer e Recorded In the last 12 months, was t here a time when you were not able to pay the mortgage or rent on time? No 10/13/2023 In the last 12 months, how many places have you lived? 1 10/13/2023 In the last 12 months, was t here a time when you did not have a steady place to sleep or slept in a retirement (including now)? No 10/13/2023 Sex and Gender Information Value Date Recorded Sex Assigned at Male 07/11/2023 7:40 PM CDT Legal Sex Male 1:38 PM CDT Gender Identity Male 07/11/2023 7:40 PM CDT Sexual Orientation Straight 07/11/2023 7: 40 PM CDT documented as of this encounter Functional Status * Is person deaf or have serious hearing difficulty? Answer Date of Assessment Author No 10/13/2023 3:13 PM CDT Rhonda Zaragoza RN * Is person blind or have serious difficulty seeing? Answer Date of Assessment Author No 10/13/2023 3:13 PM CDT Rhonda Zaragoza RN * Does person have serious difficulty walking/climbing stairs? Answer Date of Assessment Author No 10/13/2023 3:13 PM CDT Rhonda Zaragoza RN * Does person have difficulty dressing/bathing? Answer Date of Assessment Author No 10/13/2023 3:13 PM CDT Rhonda Zaragoza RN * Does person have difficulty doing errands alone? Answer Date of Assessment Author No 10/13/2023 3:13 PM CDT Rhonda Zaragoza RN documented as of this encounter Mental Status * Does person have difficulty concentrating/remembering/making decisions? Answer Entry Date Author No 10/13/2023 3:13 PM KODYT Rhonda Zaragoza RN documented in this encounter Plan of Treatment Upcoming Encounters Date Type Department Care Team (Late st Contact Info) Description 04/14/2025 8:30 AM HEARING CARE PRACTITIONER Appointment [facility] [address] [place] [address] 04/14/2025 9:00 AM HEARING CARE PRACTITIONER Office Visit [facility] - Hematology/Oncology [address] [place] [address] Maureen Dunne APRN-HEEL SEAT FILLER [address] [place] [address] documented as of this encounter Visit Diagnoses Not on filedocumented in this encounter Additional Health Concerns Infection Onset Date Last Indicated Resolved Time C Diff Hx 10/14/2023 10/14/2023 COVID-19 Under Investigation 12/10/2023 12/10/2023 12/10/2023 4:40 PM CDT COVID-19 Under Investigation 12/10/2023 12/10/2023 12/11/2023 1:22 AM CDT MDRO 12/10/2023 12/10/2023 COVID-19 Under Investigation 01/26/2024 01/26/2024 01/26/2024 8:24 PM HEARING CARE PRACTITIONER documented as of this encounter Care Teams [facility] Relationship Specialty Start Date End Date Unknown, Provider PCP - General 08/06/23 11/05/23 Malachi Kapoor MD [facility] [place] [address] [address] PCP - General Family Medicine 11/06/23 John Agrawal MD [address] DIV OF HEMATOLOGY & [place] [address] Hematology and Oncology 07/13/23 Teresa Alatorre MD [address] DIV OF HEMATOLOGY & [place] [address] Bus Aide/Oncologis t Hematology and Oncology 07/14/23 Ethan Bravo MD [address] [place] [id number] Physician Hematology and Oncology 07/14/23 Janiya Yang, PharmD 07/14/23 Elyse Hart, RN 07/14/23 Namita Padilla, COLOR WEIGHER-HEEL SEAT FILLER [address] DIV OF HEMATOLOGY & [place] [address] Advance Practice Nurse Nurse Practitioner 07/14/23 Nalini Holliday, RN Registered Nurse 07/14/23 Shannon Ochoa, ELA Registered Nurse 07/14/23 Mai Echevarria, SENIOR STORAGE ENGINEER [employer] 07/14/23 Senait Gallardo 07/14/23 Mayra Echeverria [employer] 07/14/23 Tommy Calles MD [address] [place] [address] [place] [id number] Resident Hematology and Oncology 12/15/23 Stevie Parker MD [facility] [place] [id number] Physician Allergy and Immunology 05/27/24 documented as of this encounter
--- OUTSIDE RECORDS SUMMARY | 2025-01-27 09:45 | XMS_ITS | Clinical Summary ---
Author Organization [facility] Address [address] [address] Care Team Providers Care Windlace Machine Operator Name Role Phone John Agrawal MD Unavailable [phone] Teresa Alatorre MD Unavailable [phone] Ethan Bravo MD Unavailable Janiya Yang PharmD Unavailable Unavailab Elyse Boggs RN Unavailable Unavailable Namita Padilla JR. SYSTEMS ADMINISTRATOR-FIELD MAP TECHNICIAN Unavailable [phone] Nalini Holliday RN Unavailable Unavailable Shannon Ochoa RN Unavailable Unavaila Mai DavalosW Unavailable Unavailab Senait Cruz Unavailable Demi Mayra Castro Unavailable Unavailable Malachi Kapoor MD Primary Care Provider Tommy Calles MD Unavailable Stevie Parker MD Unavailable Source Comments [facility],non-owned Affiliates and Associated Physician Practices is amultiple site organization consisting of ambulatory clinics and hospital sitesin [place], [place], [place] and [place]. This disclosure is being madepursuant to the Care Everywhere program and may not contain all information available regarding this patient. Last updated 17.[facility] Allergies Active Allergy Reactions Criticality Noted Date Comments Bromocriptine Anaphylaxis High 07/08/2023 Found unresponsive after taking Meropenem Rash Medium 08/02/2023 Rash without s/sx anaphylaxis. Developed maculopapular pruritic red rash on torso, back and upper and lower extremities after ~10 days of meropenem. Meropenem started 07/18, rash developed 07/27 and worsened until meropenem was stopped on 08/01. Resolved after meropenem was discontinued. Patient received cefepime from 07/09- without rash (allergy was removed from chart). Medications * Be aware that medications may not be up to date on this document. Alwaysverify current medications with the patient. albuterol HFA (Proventil; Ventolin; Proair) 108 (90 Base) MCG/ACT inhaler Inhale 2 (two) puffs by mouth every 6 hours as needed for Shortness of Breath or Wheezing Active cabergoline (Dostinex) 0.5 MG tablet Take 0.5 (one-half) tablet by mouth every Friday & for 30 days 4 tablet 4 Active Trelegy Ellipta 100-62.5-25 MCG/ACT Inhale 1 (one) puff by mouth once daily 5 Active cabergoline (Dostinex) 0.5 MG tablet TAKE 1/2 TABLET BY MOUTH 2 TIMES A WEEK 4 Active fluticasone propionate (Flonase) 50 MCG/ACT nasal spray 5 Active tiZANidine (Zanaflex) 2 MG tablet 1 tab every 8 hours as needed for muscle stiffness If well tolerated can increase to 2 tab every 8 hours 120 tablet 5 5 Active Additional Information Patient not taking.Reported on 10/07/2024 hydrOXYzine HCl (Atarax) 50 MG tablet Take 1 (one) tablet by mouth every 6 hours as needed for Itching 10 tablet 4 09/01/19 24 Discontin ued(No Pharm No AVS) loratadine (Claritin) 10 MG tabletIndicati ons:Acute Urticaria Take 1 (one) tablet by mouth once daily Reasons: Acute Urticaria 10 tablet 4 09/01/19 24 Discontin ued(No Pharm No AVS) cyclobenzaprin e (Flexeril) 5 MG tablet Take 1 (one) tablet by mouth 3 times daily as needed 10 tablet 4 09/01/19 24 Discontin ued(No Pharm No AVS) dicyclomine (Bentyl) 20 MG tablet Take 1 (one) tablet by mouth 4 times daily as needed after meals/at bedtime 20 tablet 4 09/01/19 24 Discontin ued(No Pharm No AVS) triamcinolone acetonide (Kenalog) 0.1 % ointment Apply to affected area 3 times daily 454 g 4 09/01/19 24 Discontin ued(No Pharm No AVS) Active Problems Problem Noted Date Diagnosed Date Subdural hematoma 01/26/2024 Hypertension, unspecified type 01/26/2024 Fall, initial encounter 01/26/2024 Laceration of occipital scalp, initial encounter 01/26/2024 Bacteremia 12/11/2023 Chronic dental pain 12/11/2023 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 12/10/2023 Dizziness 10/16/2023 Benign prostatic hyperplasia without lower urinary tract symptoms 10/14/2023 Nystagmus 10/14/2023 Pituitary adenoma 10/14/2023 Abnormal urinalysis 10/14/2023 Other constipation 09/06/2023 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 Severe malnutrition 07/10/2023 Hypophosphatemia 07/10/2023 Metabolic acidosis 07/10/2023 COPD (chronic obstructive pulmonary disease) Hypokalemia 07/09/2023 Hypoalbuminemia 07/09/2023 Normocytic anemia 07/09/2023 Thrombocytopenia 07/09/2023 Elevated INR 07/09/2023 Coagulopathy 07/09/2023 Acute leukemia in remission 07/08/2023 Resolved Problems Problem Noted Date Diagnosed Date Resolved Date Neutropenic fever 12/11/2023 12/25/2023 Encounters Date Type Department Care Team Description 01/19/2025 10:30 AM [facility] - 01/19/2025 11:59 PM [facility] Hospital Encounter [facility] [address], [address] [place] [address] John Agrawal MD Discharge Disposition: Home or Self Care 01/19/2025 Travel 01/14/2025 Orders Only [facility] - Hematology/Oncology [address] [place] [phone] Delia Lombardo RN 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) 01/13/2025 2:40 PM [facility] Office Visit [facility] - Hematology/Oncology [address] [place] [phone] Feng Lombardo DO Goyal, Sagun D, MD 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) (Primary Dx) 01/13/2025 1:57 PM [facility] - 01/13/2025 11:59 PM [facility] Hospital Encounter [facility] [address] [place] [address], [address] [place] [address] Feng Lombardo DO Discharge Disposition: Home or Self Care 01/13/2025 Results Follow-Up [facility] - Hematology/Oncology [address] [place] [phone] John Agrawal MD 01/13/2025 Travel 01/10/2025 Orders Only [facility] - Hematology/Oncology [address] [place] [phone] Deila Lombardo RN 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) 01/06/2025 6:46 AM [facility] - 01/06/2025 11:59 PM [facility] Hospital Encounter [facility] [address] [place] [address] Maureen Dunne APRN-FIELD MAP TECHNICIAN Discharge Disposition: Home or Self Care 01/06/2025 Travel from Last 3 Months Immunizations Immunization Administration Dates Next Due INFLUENZA VACCINE, CELL CULT URE, QUADR. (FLUCELVAX QUADRIVALENT; 6MO+) (CCIIV4) 12/21/2021 INFLUENZA VACCINE, QUADR. (F LUZONE; FLULAVAL; FLUARIX; AFLURIA QUADRIVALENT; 6MO+), 0.5 ML (IIV4) 01/02/2023 Social History Tobacco Use Types Packs/Day Years Used Date Smoking Tobacco: Every Day Cigarettes 0.5 45.9 Started: 02/24/1979 Passive Smoke Exposure: Current Smokeless Tobacco: Never Tobacco Cessation:Ready to Q uit: Not Asked; Counseling Given: Not Answered Alcohol Use Standard Drinks/Week Comments Never 0 (1 standard drink = 0.6 oz pur e alcohol) AUDIT-C Answer Date Recorded Q1: How often do you have a drink containing alcohol? Never 12/10/2023 Q2: How many drinks containi ng alcohol do you have on a typical day when you are drinking? Patient does not drink Q3: How often do you have si x or more drinks on one occasion? Never 12/10/2023 Overall Financial Resource Strain (CARDIA) Answe r Date Recorded How hard is it for you to pa y for the very basics like food, housing, medical care, and heating? Not hard at all 12/10/2023 [facility] Occupat ional Health - Occupational Stress Questionnaire Answer Date Recorded Do you feel stress - tense, restless, nervous, or anxious, or unable to sleep at night because your mind is troubled all the time - these days? Not at all 12/10/2023 Hunger Vital Sign Answer Date Recorded Within the past 12 months, y ou worried that your food would run out before you got the money to buy more. Never true 12/10/19 24 Within the past 12 months, t he food you bought just didn't last and you didn't have money to get more. Never true 12/10/2023 PRAPARE - Transportation Answer Date Re corded In the past 12 months, has l ack of transportation kept you from medical appointments or from getting medications? No 11/24 In the past 12 months, has l ack of transportation kept you from meetings, work, or from getting things needed for daily living? No 12/10/2023 Housing Stability Vital Sign Answer Delmer e Recorded In the last 12 months, was t here a time when you were not able to pay the mortgage or rent on time? No 11/24/2023 In the last 12 months, how many places have you lived? 1 11/24/2023 In the last 12 months, was t here a time when you did not have a steady place to sleep or slept in a retirement (including now)? No 11/24/2023 Housing Stability Vital Sign Answer Delmer e Recorded In the last 12 months, was t here a time when you were not able to pay the mortgage or rent on time? No 12/10/2023 In the past 12 months, how m any times have you moved where you were living? 0 12/10/2023 At any time in the past 12 m [facility], were you homeless or living in a retirement (including now)? No 12/10/2023 Sex and Gender Information Value Date Recorded Sex Assigned at Male 07/11/2023 7:40 PM CDT Legal Sex Male 1:38 PM CDT Gender Identity Male 07/11/2023 7:40 PM CDT Sexual Orientation Straight 07/11/2023 7: 40 PM CDT Last Filed Vital Signs Vital Sign Reading Time Taken Comments Blood Pressure 144/79 01/13/2025 2:10 PM [facility] Pulse 78 01/13/2025 2:10 PM [facility] Temperature 36.9 C (98.4 F) 01/13/2025 2:10 PM [facility] Respiratory Rate 18 01/13/2025 2:10 PM [facility] Oxygen Saturation 98% 01/13/2025 2:10 PM [facility] Inhaled Oxygen Concentration 21% 11/27/2023 9 :04 PM CDT Weight 100 kg (220 lb 6.4 oz) 01/13/2025 2:10 PM [facility] Height 195.6 cm (6' 5) 08/09/2024 8:41 AM CDT Body Mass Index 26.14 08/09/2024 8:41 AM CDT Plan of Treatment Upcoming Encounters Date Type Department Care Team (Late st Contact Info) Description 04/14/2025 8:30 AM [facility] Appointment [facility] [address] [facility] [address] [place] [address] 04/14/2025 9:00 AM [facility] Office Visit [facility] - Hematology/Oncology [address] [place] [phone] Maureen Dunne APRN-FIELD MAP TECHNICIAN [address] [place] [address] Health Maintenance Due Date Last Done Comments COLOGUARD (AGES 45-75) - COLON CA SCREENING 1962 COLON MONITORING 1962 COLONOSCOPY - COLON CA SCREENING 1962 CT COLONOGRAPHY - COLON CA SCREENING 1962 Colorectal Cancer Screening 1962 FIT - COLON CA SCREENING 1962 FLEX SIG - COLON CA SCREENING 1962 LIPID TESTING 1962 DTAP/TDAP/TD VACCINES (1 - Tdap) 1981 PNEUMOCOCCAL VACCINE 50+ (1 of 2 - PCV) 1981 ZOSTER VACCINE (1 of 2) 1981 LUNG CANCER SCREENING 2012 Respiratory Syncytial Virus (RSV) Vaccine Pt: or over 60 yrs (1 - Risk 50-74 years 1-dose series) 2012 DEPRESSION SCREENING 02/25/2024 COVID-19 VACCINE ( season) 2024 12/21/2021, 03/09/2021, 08/17/2020, Additional history exists INFLUENZA VACCINE (#1) 2024 5, 01/02/2023, 12/21/2021 SCREENING FOR DIABETES 01/14/2028 5, 10/07/2024, 07/01/2024, Additional history exists HEPATITIS C SCREENING Completed 07/08/2023 HIV SCREENING Completed 07/08/2023 HEPATITIS B VACCINE Aged Out No longe r eligible based on patient's age to complete this topic HIB VACCINE Aged Out No longer eligi ble based on patient's age to complete this topic HPV VACCINE Aged Out No longer eligi ble based on patient's age to complete this topic MENINGOCOCCAL (Group B) VACCINE SHARED DECISION-MAKING Aged Out No longer eligible based on patient's age to complete this topic MENINGOCOCCAL GROUPS A/C/Y/W VACCINE Aged Out No longer eligible based on patient's age to complete this topic Medical Devices Implanted Type Area Driver'S Education Instructor Device Identifier Shelf Expiration Date Model / Serial / Lot Tray Cath 12fr 19cm Hkmn Trifusion 3 Lum Implanted:Qty: 1 on 07/11/2023 by Jony Lopez MD at [facility] [employer] 04/23/2025 [id number] / / [id number] Procedures Procedure Name Priority Date/Time Associated Diagnosis Comments LDH BLOOD Routine 01/13/2025 2:03 PM [facility] 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) COMPREHENSIVE METABOLIC PANEL Routine 01/13/2025 2:03 PM [facility] 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) CBC W AUTO DIFFERENTIAL Routine 01/13/2025 2:03 PM [facility] 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) CT CHEST WO CONTRAST Routine 01/06/2025 7:00 AM [facility] Lung nodule seen on imaging study 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3 80.0 - 98.0 fL 01/13/2025 2:50 PM [facility] MCH 30.4 26.7 - 33.6 pg 01/13/2025 2:50 PM [facility] MCHC 33.7 31.7 - 36.3 g/dL 01/13/2025 2:50 PM [facility] RDW-CV 14.6 11.3 - 14.8 % 01/13/2025 2:50 PM [facility] Platelet Count 226 150 - 420 x10E9/L 01/13/2025 2:50 PM [facility] MPV 10.0 7.8 - 11.4 fL 01/13/2025 2:50 PM [facility] Neutrophil % 63.0 41.0 - 74.0 % 01/13/2025 2:50 PM [facility] Lymphocyte % 24.3 17.0 - 47.0 % 01/13/2025 2:50 PM [facility] Monocyte % 9.4 3.0 - 11.0 % 01/13/2025 2:50 PM [facility] Eosinophil % 1.9 0.0 - 7.0 % 01/13/2025 2:50 PM [facility] Basophil % 0.8 0.0 - 1.6 % 01/13/2025 2:50 PM [facility] Immature Granulocytes % 0.6 0.0 - 1.0 % 01/13/2025 2:50 PM [facility] Neutrophil Absolute 4.00 1.60 - 7.50 x10E9/L 01/13/2025 2:50 PM [facility] Lymphocyte Absolute 1.54 1.00 - 4.40 x10E9/L 01/13/2025 2:50 PM [facility] Monocyte Absolute 0.60 0.15 - 1.00 x10E9/L 01/13/2025 2:50 PM [facility] Eosinophil Absolute 0.12 0.00 - 0.60 x10E9/L 01/13/2025 2:50 PM [facility] Basophil Absolute 0.05 0.00 - 0.13 x10E9/L 01/13/2025 2:50 PM [facility] Blood BLOOD SPECIMEN / Unknown Lab Venipuncture / Unknown 01/13/2025 2:03 PM [facility] 01/13/2025 2:25 PM [facility] us John Agrawal MD LAB - HEMATOLOGY ORDERABLES Fin al Result [facility] [address] [place] [address], [place] [phone] * (ABNORMAL) COMPREHENSIVE METABOLIC PANEL (01/13/2025 2:03 PM [facility]) BUN 11 7 - 26 mg/dL 01/13/2025 2:51 PM [facility] Creatinine 1.07 0.71 - 1.16 mg/dL 01/13/2025 2:51 PM [facility] Sodium 140 136 - 145 mmol/L 01/13/2025 2:51 PM [facility] Potassium 4.3 3.5 - 4.5 mmol/L 01/13/2025 2:51 PM [facility] Chloride 107 98 - 107 mmol/L 01/13/2025 2:51 PM [facility] CO2 24 22 - 29 mmol/L 01/13/2025 2:51 PM [facility] Glucose 89 70 - 99 mg/dL 01/13/2025 2:51 PM [facility] Calcium 9.4 8.4 - 10.2 mg/dL 01/13/2025 2:51 PM [facility] Protein Total 7.1 6.0 - 8.3 g/dL 01/13/2025 2:51 PM [facility] Albumin 4.4 3.4 - 5.0 g/dL 01/13/2025 2:51 PM [facility] Bilirubin Total 0.3 0.2 - 1.2 mg/dL 01/13/2025 2:51 PM [facility] Alkaline Phosphatase 101 40 - 150 U/L 01/13/2025 2:51 PM [facility] ALT 10 5 - 55 U/L 01/13/2025 2:51 PM [facility] AST 13 5 - 34 U/L 01/13/2025 2:51 PM [facility] Anion Gap 9 6 - 16 01/13/2025 2:51 PM [facility] BUN/Creatinine Ratio 10 7 - 23 01/13/2025 2:51 PM [facility] Osmolality Calculated 289 275 - 295 mOsm/kg 01/13/2025 2:51 PM [facility] Albumin/Globulin Ratio 1.6 1.1 - 2.3 01/13/2025 2:51 PM [facility] eGFR by CKD-EPI 78(L) >=90 mL/min/1.7 3 m2 01/13/2025 2:51 PM [facility] Comment:Estimated Glomerular Filtration Rate (eGFR) calculated using the CKD-EPI Creatinine Equation (2020), per the National Kidney Foundation and [place] Society of Nephrology recommendations. Blood BLOOD SPECIMEN / Unknown Lab Venipuncture / Unknown 01/13/2025 2:03 PM [facility] 01/13/2025 2:25 PM [facility] us John Agrawal MD LAB - CHEMISTRY ORDERABLES Josey l Result [address] [address], [place] [phone] * LDH BLOOD (01/13/2025 2:03 PM [facility]) LDH Total 173 125 - 243 Units/L 01/13/2025 2:51 PM [facility] Blood BLOOD SPECIMEN / Unknown Lab Venipuncture / Unknown 01/13/2025 2:03 PM [facility] 01/13/2025 2:25 PM [facility] us John Agrawal MD LAB - CHEMISTRY ORDERABLES Josey l Result Performing Organization Address City/[facility]/ZIP Co de Phone Number [address] [address], [place] [phone] * CT Chest Wo Contrast (01/06/2025 7:00 AM [facility]) Anatomical Region Laterality Modality Chest Computed Tomogra phy 01/06/2025 7:18 AM [facility] Impressions 01/06/2025 9:34 AM [facility] Impression: 1.Unchanged pulmonary nodules in the right upper lobe, right middle lobe and lingula. These demonstrate 8 month stability and favored to be benign. 2.No acute process in the chest. > Dictated by Idalmis MISHRA, [facility] (certified prosthetist vice president). > Dictated by Proposal Lead Writer IWard have personally reviewed and interpreted this examination/study. 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 Findings: Evaluation of visceral and vascular structures is degraded due to lack of intravenous contrast administration. Tubes and lines: None. Lower Neck and Axillae: Normal. Lungs: No pulmonary parenchymal or airway process is present. Unchanged 0.8 cm pulmonary nodule in the apical segment of the right upper lobe (image 31, series 3), unchanged 0.4 cm pulmonary nodule in the right middle lobe (image 67, series 3), unchanged 0.9 cm pulmonary nodule in the lingula (image 77, series 3). Left upper lobe nodule measuring 4 mm (Series 4, Image 46) is also unchanged. No pleural fluid or pneumothorax is present. Heart and Pericardium: The cardiac chambers are normal in size. No pericardial fluid or thickening is present. The coronary arteries are atherosclerotic. Mediastinum and Christine: No enlarged lymph nodes are present. Thoracic Vasculature: The aorta and its branch vessels are atherosclerotic. Bones and Chest Wall: Bone windows demonstrate no suspicious lytic or blastic lesions. The visible osseous structures are intact. Degenerative changes are seen in the spine. Soft tissue: Bilateral gynecomastia. Upper Abdomen: The visible portions of the upper abdominal organs are normal. 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 Findings: Evaluation of visceral and vascular structures is degraded due to lackof intravenous contrast administration. Tubes and lines: None. Lower Neck and Axillae: Normal. Lungs: No pulmonary parenchymal or airway process is present. Unchanged 0.8 cm pulmonary nodule in the apical segment of the right upper lobe (image31, series 3), unchanged 0.4 cm pulmonary nodule in the right middle lobe (image 67, series 3), unchanged 0.9 cm pulmonary nodule in the lingula (image 77, series 3). Left upper lobe nodule measuring 4 mm (Series 4, Image 46) is also unchanged. No pleural fluid or pneumothorax ispresent. Heart and Pericardium: The cardiac chambers are normal in size. No pericardial fluid orthickening is present. The coronary arteries are atherosclerotic. Mediastinum and Christine: No enlarged lymph nodes are present. Thoracic Vasculature: The aorta and its branch vessels are atherosclerotic. Bones and Chest Wall: Bone windows demonstrate no suspicious lytic or blastic lesions. The visible osseous structures are intact. Degenerative changes are seen inthe spine. Soft tissue: Bilateral gynecomastia. Upper Abdomen: The visible portions of the upper abdominal organs are normal. Impression: 1.Unchanged pulmonary nodules in the right upper lobe, right middle lobe and lingula. These demonstrate 8 month stability and favored to bebenign. 2.No acute process in the chest. > Dictated by Idalmis MISHRA, [facility] (certified prosthetist vice president). > Dictated by Proposal Lead Writer I, Ward Nolasco have personally reviewed and interpreted this examination/study. > Interpreting Provider: Ward Nolasco on 01/06/2025 9:34 AM Maureen Dunne JR. SYSTEMS ADMINISTRATOR-FIELD MAP TECHNICIAN CT ORDERABLES Josey nolen Result * HEPATITIS C AB SCREEN RFLX NAAT QUANT (07/08/2023 11:28 PM CDT) Hepatitis C Antibody Non-react lenora Non-reac tive 07/09/2023 1:00 AM CDT [facility] Comment:Hepatitis C Antibody screen indicates no serologic evidence of past or current infection with Hepatitis C Virus. Patients with unexplained liver disease who are immunocompromised or suspected of having acute Hepatitis C infection may benefit from Nucleic Acid Test (RHYS) for Hepatitis C Viral RNA to confirm Hepatitis C status. Blood BLOOD SPECIMEN / Unknown Venipuncture / Unknown 07/08/2023 11:28 PM CDT 07/08/2023 11:56 PM CDT Nate Cannon II, MD LAB - CHEMISTRY ORDERABL ES Final Result [facility] [address] [place] [address], [place] [phone] * HIV-1 HIV-2 ANTIBODY + HIV P24 AG PANEL (07/08/2023 11:28 PM CDT) HIV Antigen/Antibod y 1 & 2 Non-reacti ve Non-react lenora 07/09/2023 1:01 AM CDT [facility] Comment:No Laboratory eviden ce of HIV infection. Blood BLOOD SPECIMEN / Unknown Venipuncture / Unknown 07/08/2023 11:28 PM CDT 07/08/2023 11:56 PM CDT Nate Cannon II, MD LAB - CHEMISTRY ORDERABL ES Final Result Performing Organization Address [facility] Co de Phone Number [facility] [address] [place] [address], [place] [phone] from Last 3 Months or Most Recently Relevant to Health Maintenance Additional Health Concerns Infection Onset Date Last Indicated C Diff Hx 10/14/2023 10/14/2023 MDRO 12/10/2023 12/10/2023 Insurance [employer] SELF PAY NO INSURANCE Member Subscriber Plan / Payer (Ef fective for All Dates) Name:Norbert Jordan Member ID:Not on file Relation to Subscriber:Not on file Name:NORBERTJORDAN Subscriber ID:Not on file Address: [address] [place] [address] [address] [place] [address] Payer ID:Not on file Group ID:Not on file Type:Self Pay Address: [place], [place] [address] [place] [address] SELF PAY NO INSURANCE Member Subscriber Plan / Payer (Ef fective for All Dates) Name:Jordan Toussaint Member ID:Not on file Relation to Subscriber:Not on file Name:JORDAN TOUSSAINT Subscriber ID:Not on file Address: [address] [place] [address] [address] [place] [address] Payer ID:Not on file Group ID:Not on file Type:Self Pay Address: [place], [place] * Guarantor: JORDAN TOUSSAINT Account Type Relation to Patient Date of Phone Billing Address Personal/Family [address] [place] [address] [address] [place] [address] SELF PAY NO INSURANCE Member Subscriber Plan / Payer (Ef fective for All Dates) Name:Jordan Toussaint Member ID:Not on file Relation to Subscriber:Not on file Name:JORDAN TOUSSAINT Subscriber ID:Not on file Address: [address] [place] [address] DR [place] [address] Payer ID:Not on file Group ID:Not on file Type:Self Pay Address: [place], [place] Advance Directives Documents on File Type Date Recorded Patient Salt Cutter Expl anation Adv Directive/Living Will/POA 09/08/2023 12:03 PM Adv Directive/Living Will/POA 09/04/2023 2:37 PM * Full Code (Latest Code Status on File) Date Activated Date Inactivated Comments 01/26/2024 3:15 PM 01/27/2024 1:00 PM * Full Code Date Activated Date Inactivated Comments 12/10/2023 6:22 PM 12/19/2023 5:18 PM * Full Code Date Activated Date Inactivated Comments 11/24/2023 6:01 PM 11/29/2023 1:57 PM * Full Code Date Activated Date Inactivated Comments 10/13/2023 3:34 PM 10/18/2023 2:48 PM * Full Code Date Activated Date Inactivated Comments 09/01/2023 5:12 PM 09/06/2023 12:08 PM Care Teams Windlace Machine Operator Relationship Specialty Start Date End Date Malachi Kapoor MD [address] [place] [address] [address] PCP - General Family Medicine 11/06/23 John Agrawal MD [address] [facility] & [place] [address] Hematology and Oncology 07/13/23 Teresa Alatorre MD [address] [place] [address] OF HEMATOLOGY & [place] [address] Rescue Boat Operator/Oncologis t Hematology and Oncology 07/14/23 Ethan Bravo MD [address] [place] [phone] Physician Hematology and Oncology 07/14/23 Janiya Yang, PharmD 07/14/23 Elyse Hart, RN 07/14/23 Namita Padilla APRN-FIELD MAP TECHNICIAN [address] [place] [address] OF HEMATOLOGY & [place] [address] Advance Practice Nurse Nurse Practitioner 07/14/23 Nalini Holliday, RN Registered Nurse 07/14/23 Shannon Ochoa, ELA Registered Nurse 07/14/23 Mai Echevarria, CLOTH DESIZING RANGE TENDER Cyberathlete 07/14/23 Senait Gallardo 07/14/23 Mayra Echeverria Golf Ball Winder 07/14/23 Tommy Calles MD [address] [place] [address] [place] [phone] Resident Hematology and Oncology 12/15/23 Stevie Parker MD [address] [place] [phone] Physician Allergy and Immunology 05/27/24
--- OUTSIDE RECORDS SUMMARY | 2025-01-27 09:45 | XMS_ITS ---
Author Organization [facility] Address [address] [place] [address] Care Team Providers Care Assistant Kitchen Manager Name Role Phone John Agrawal MD Unavailable [phone] Teresa Alatorre MD Unavailable [phone] Ethan Bravo MD Unavailable Janiya Yang PharmD Unavailable Unavailab Elyse Boggs RN Unavailable Unavailable Namita Padilla PROPERTY ADJUSTER-OIL SEAL ASSEMBLER Unavailable [phone] Nalini Holliday RN Unavailable Unavailable Shannon Ochoa RN Unavailable Unavaila Mai DavalosW Unavailable Unavailab Senait Cruz Unavailable Demi Mayra Castro Unavailable Unavailable Malachi Kapoor MD Primary Care Provider Tommy Calles MD Unavailable Stevie Parker MD Unavailable [phone] Active Problems Problem Noted Date Diagnosed Date [...] Coagulopathy 07/09/2023 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 Past Treatment and Therapy Plans ONCOLOGY TREATMENT Plan Name Start Date Discontinue Date Treatment Medications Discontinue Reason Plan Provider Cycles IP AML CONSOLIDATION - AGE <60 (HIGH DOSE CYTARABINE)(JUNE ER HIDAC) 4 01/26/2024 cytarabine (Cytosar) Infusion Therapy Complete Tommy Calles MD 3 of 3 cycles started IP AML INDUCTION (IDARUBICIN CYTARABINE) (7+3) 07/12/19 24 08/18/2023 cytarabine (Cytosar) InfusionIDArubicin (Idamycin)rasburica se (Elitek) custom in 50 mL bolus Therapy Complete John Agrawal MD 1 of 1 cycle started APL (High Risk) Induction with gemtuzumab, ATRA, and Arsenic 07/12/19 24 07/11/2023 arsenic (Trisonex) Infusiongemtuzumab (Mylotarg)rasburica se (Elitek) custom in 50 mL bolus Not Started John Agrawal MD Treatment not started Lifetime Dose Tracking * Chemical Lifetime Dose Automatic Entry Manual Entr y Idarubicin 36.215 mg/m2 (81 mg) 36.215 mg/m2 (81 mg) 0 mg/m2 (0 mg) CTDI(vol) 214 mGy 214 mGy 0 mGy Dose Length Product 1,788 mGy-cm 1,788 mGy-cm 0 mGy-cm Resolved Problems Problem Noted Date Diagnosed Date Resolved Date Neutropenic fever 12/11/2023 12/25/2023
[2025-01-28 07:09] LABS: PSA, Free 0.77 ng/mL
== END 2025-01-27 09:08 | disposition home or self-care (01) ==
LOC: ANHGOSHLAB 09:08
PROVIDERS: PCP Family Medicine; Visit Provider Family Medicine
DX: Z12.5 Encounter for screening for malignant neoplasm of prostate (principal); R97.20 Elevated prostate specific antigen [PSA]
CPT/HCPCS: 84153; 84154